=== PATIENT | male | born 1960 | race Caucasian/White ===

== ENCOUNTER 2016-06-30 11:49 | Inpatient (IN) | payer OTHER ==
[~2016-06-30] VITALS: Ht 175.3 cm; Wt 62.4 kg
[~2016-06-30 11:49] MED LIST: AMITRIPTYLINE H10 MG PO; AMLODIPINE BESYL5 MG PO; ATENOLOL100 MG PO; ATENOLOL50 MG PO; ATORVASTATIN CA10 MG PO; CARDIZEM C1 PO; COMBIVENT RESPIMAT IN; COMBIVENT RESPIMAT INH; CYCLOBENZAPRINE10 MG PO; LEVOFLOXACIN500 MG PO; LIPITOR20 MG PO; LOPRESSOR25 MG PO; MAG6464 MG PO; MAGNESIUM400 M1; MAGNESIUM400 M1 PO; MELOXICAM7.5 MG PO; NORCO1 TA1 PO; NORCO1 TA2 PO; NORVASC5 MG PO; OMEGA 31000 MG; OMEGA 31000 MG PO; OMEPRAZOLE20 M1 PO; ONDANSETRON ODT4 MG PO; POTASSIUM CHLO20 ME4 PO; PREDNISONE10 MG PO; PRENATABS RX PO; PRENATAL MULTI1 CAP PO; PRILOSEC OTC20 MG PO; TIZANIDINE HCL4 MG PO; ZOFRAN ODT4 MG PO; [UNRECOGNIZED DRUG - SUPPLY]; [UNRECOGNIZED DRUG - SUPPLY] TOP
--- NOTE | 2016-06-30 13:13 | DIAGNOSTIC IMAGING REPORT ---
PROCEDURE: XR CHEST 1 VIEW INDICATION: Atrial fibrillation. TECHNIQUE: Portable AP view (1235 hours). COMPARISON: Compared to chest x-ray on 02/05/2016. FINDINGS: Allowing for overlying wires and electrodes, lungs are clear. Heart and mediastinum are normal. Thorax is normal. IMPRESSION: 1. Negative chest.
--- NOTE | 2016-06-30 13:18 | DIAGNOSTIC IMAGING REPORT ---
PROCEDURE: CT HEAD WITHOUT CONTRAST INDICATION: SEIZURE TECHNIQUE: Noncontrast axial images with sagittal and coronal reformations. COMPARISON: Compared to a head CT studies on 02/04/2016 and 01/31/2016. FINDINGS: Brain and ventricles are within normal limits (mild atrophic changes). No evidence of an acute process or hemorrhage. Sinuses and mastoids are normal. IMPRESSION: 1. Negative head CT (mild atrophic changes). No evidence of acute process. 2. Findings discussed with Dr. Dioni Mayes at [address] scans at this facility use dose modulation, iterative reconstruction, and/or weight-based dosing when appropriate to reduce radiation dose to as low as reasonably achievable.
--- NOTE | 2016-06-30 13:40 | ED ORDER SUMMARY ---
..... Patient: DEWEY VELOZ OrderSheet [facility] VisitID: [id number] [place] [address] 55y, M Registration Date/Time: 06/30/2016 ORDER SHEET Weight: 68.0 kg (stated) Allergies: CONTRAST DYE GENERAL ORDERS: Chest 1V Urgent (12:06/30/2016 Salome MORA) (Ack 12:10 LMuller) (12:32 MWinterer R.N.) CT Head wo Cont Urgent (12:06/30/2016 Salome MORA) (Ack 12:10 LMuller) (12:32 MWinterer R.N.) Health Promotion Specialist (Continuous) (:06/30/2016 Salome MORA) (Ack 12:10 LMuller) (12:11 MWinterer R.N.) CBC w Diff Urgent (12:06/30/2016 Salome MORA) (Ack 12:10 LMuller) (12:13 MWinterer R.N.) CMP Urgent (12:06/30/2016 Salome MORA) (Ack 12:10 LMuller) (12:13 MWinterer R.N.) UA-Culture if indicated Urgent (12:06/30/2016 Salome MORA) (Ack 12:10 LMuller) (12:55 MWinterer R.N.) PT with INR Urgent (12:06/30/2016 Salome MORA) (Ack 12:10 LMuller) (12:13 MWinterer R.N.) PTT Urgent (12:06/30/2016 Salome MORA) (Ack 12:10 LMuller) (12:13 MWinterer R.N.) Amylase Urgent (12:06/30/2016 Salome MORA) (Ack 12:10 LMuller) (12:13 MWinterer R.N.) Lipase Urgent (12:06/30/2016 Salome MORA) (Ack 12:10 LMuller) (12:13 MWinterer R.N.) CPK Urgent (12:06/30/2016 Salome MORA) (Ack 12:10 LMuller) (12:13 MWinterer R.N.) Troponin-I Urgent (12:06/30/2016 Salome MORA) (Ack 12:10 LMuller) (12:13 MWinterer R.N.) Urine Drug Screen Urgent (12:06/30/2016 Salome MORA) (Ack 12:10 LMuller) (12:55 MWinterer R.N.) Ethyl Alcohol Urgent (12:06/30/2016 Salome MORA) (Ack 12:10 LMuller) (12:13 MWinterer R.N.) TSH Urgent (12:06/30/2016 Salome MORA) (Ack 12:10 LMuller) (12:13 MWinterer R.N.) BNP Urgent (12:06/30/2016 Salome MORA) (Ack 12:10 LMuller) (12:13 MWinterer R.N.) Oxygen (2 L/min) (NC) (12:06/30/2016 Salome MORA) (Ack 12:10 LMuller) (12:11 MWinterer R.N.) Pulse oximeter (12:06/30/2016 Salome MORA) (Ack 12:10 LMuller) (12:11 MWinterer R.N.) EKG - ER Stat (12:06/30/2016 Salome MORA) (Ack 12:10 LMuller) (12:10 LMuller) Seizure Precautions (12:25 06/30/2016 Salome MORA) (12:32 MWinterer R.N.) Hip 2V Right w AP Pelvis Urgent (12:32 06/30/2016 MWinterer R.N. verbal order read back to Salome MORA) (Ack 12:49 LMuller) (12:51 MWinterer R.N.) MEDICATION ORDERS: Diltiazem PO 30 mg (NOW) (13:15 06/30/2016 Salome MORA) (Ack 13:18 MWinterer R.N.) (13:22 MWinterer R.N.) DuoNeb Neb Tx 1 unit dose (NOW) (14:32 06/30/2016 MWinterer R.N. verbal order read back to Salome MORA) (14:33 MWinterer R.N.) IV FLUIDS: Diltiazem IV 20 mg (HIGH ALERT MEDICATION, NOW) (12:07 06/30/2016 Salome MORA) (12:12 MWinterer R.N.) IV Saline Lock (12:09 06/30/2016 Salome MORA) (12:12 MWinterer R.N.) Ativan IV 0.5 mg (HIGH ALERT MEDICATION, NOW) (12:24 06/30/2016 Salome MORA) (12:31 MWinterer R.N.) Zofran IV 4 mg (NOW) (12:32 06/30/2016 MWinterer R.N. verbal order read back to Salome MORA) (12:33 MWinterer R.N.) Diltiazem IV 25 mg (HIGH ALERT MEDICATION, NOW) (12:57 06/30/2016 Salome MORA) (13:02 MWinterer R.N.) IV NS : initial bolus none -, then 1000 mL/hr (NOW) (13:03 06/30/2016 MWinterer R.N. per protocol) (13:03 MWinterer R.N.) LORazepam IV 1 mg (NOW) (14:06 06/30/2016 MWinterer R.N. verbal order read back to Salome MORA) (14:07 MWinterer R.N.) ORDER SHEET NOTES: [Electronically signed by Verónica Olson R.N. (15:50 06/30/2016)] [Electronically signed by Dioni Mayes MD (18:04 06/30/2016)] [Electronically locked/signed by Verónica Olson R.N. (15:50 06/30/2016)]
--- NOTE | 2016-06-30 13:40 | ED NURSING NOTES ---
Clinical Report - Nurses [facility] [address] [place] [address] 06/30/2016 11:50 Patient: DEWEY VELOZ TRIAGE Acuity: LEVEL 2. Chief Complaint: SEIZURE (single episode). Alert. No acute distress. MADI COMA SCORE: [place] Coma Scale: 14- eyes open spontaneously (4); best verbal response- disoriented (4); best motor response- obeys commands (6). --12:06 Verónica Olson R.N. 11:51 06/30/16. BP: 80/61. HR: 145. RR: 16. O2 saturation: 95% on room air. Temp: 98.3 F (oral). Pain level now: 12/02. --12:06 Verónica Olson R.N. Weight: 68 kg stated. Height/Length: 69 inches Per Patient. BMI: 22.2. --11:57 Verónica Olson R.N. Medications Amitriptyline HCl Oral 10 mg, at bedtime. AmLODIPine Besylate Oral 5 mg, daily. Atenolol Oral 100 mg, daily. Atorvastatin Calcium Oral 10 mg, daily. Combivent Respimat Inhalation (Aerosol Solution 20-100 mcg/act). Magnesium Oxide Oral 200mg daily. [place] Oral (Tablet 7.5-325 mg) 1 tablet, tid as needed. [place] 3 fatty aacids daily . Omeprazole Oral 20 mg, daily. Ondansetron HCl Oral (Tablet 4 mg) 1 tablet, as needed. --11:52 Verónica Olson R.N. Ostomy Supplies. TiZANidine HCl Oral 4 mg, 2x a day. Vitamin c Oral (Tablet Chewable 500 mg) 1 tablet, daily. --11:52 Verónica Olson R.N. Medication/allergy information source: the patient. --12:06 Verónica Olson R.N. Allergies CONTRAST DYE. --11:51 Verónica Olson R.N. History Arrived by EMS. Historian: EMS and patient. Unaccompanied. Primary physician (Hola). This occurred just prior to arrival. SOCIAL HX: Former smoker, end date 2010. Alcohol use. Patient is a longstanding alcoholic. (PT REPORTS LAST DRINK 1 WEEK AGO). No drug use. LEARNING NEEDS ASSESSMENT: The learning needs assessment revealed no barriers. FALL RISK ASSESSMENT: Fall risk assessment completed. Risk factors identified include nausea, dizziness and patient impairment of mobility. Fall interventions initiated. Patient visible from nurses' station. Call light in reach of patient. FUNCTIONAL ASSESSMENT: Functional assessment performed: independent with the activities of daily living. SKIN INTEGRITY ASSESSMENT: Skin integrity risk assessment completed. No skin integrity risk identified. --12:06 Verónica Olson R.N. PROBLEMS: Laceration. Head Injury. Fall. Lifestyle / Substance Problems. Crohn's Disease. Bowel Obstruction. Kidney failure. Broken hip. Pancreatitis. Heartburn. Hypertension. Chronic Back Pain. Elevated Platelets from lab on the 14ths. --11:53 Verónica Olson R.N. Anxiety Reaction. --11:53 Verónica Olson R.N. Atrial Fibrillation. --13:39 Verónica Olson R.N. ADDITIONAL SURGERIES: Appendectomy. Back Surgery. Colostomy. Knee Surgery. Lump removal on back. Bassem in right femur. --11:53 Verónica Olson R.N. Assessment GENERAL / NEURO / PSYCH: Alert. Patient appears calm and cooperative. RESPIRATORY: Respirations not labored. CVS: Capillary refill less than 2 seconds. GI / : Abdomen soft and nontender. SKIN: Mucous membranes are pink. Skin is warm and dry. --12:06 Verónica Olson R.N. Interventions ID band on patient. To treatment room. --12:06 Verónica Olson R.N. PHYSICAL ASSESSMENT To room via stretcher. GENERAL / NEURO / PSYCH: Alert. Appears in no acute distress. The patient is disoriented to time. Speech within normal limits. HEENT: No facial asymmetry noted. Mucous membranes are pink. RESPIRATORY: Respirations not labored. CVS: Capillary refill less than 2 seconds. SKIN: Skin is warm and dry. --12:16 Verónica Olson R.N. late entry - 12:01. CVS: Cardiac rhythm: atrial fibrillation with rapid ventricular response. --12:38 Verónica Olson R.N. NURSING PROGRESS NOTES 11:57 06/30/2016 Site #1 started via IV in the right forearm with an 20g angiocath, with aseptic technique and good blood return; one attempt. Blood drawn: rainbow set. Labeled in the presence of the patient and sent to the lab. --12:12 Verónica Olson R.N. 12:07 06/30/2016 Site #2 started via IV in the left forearm with an 20g angiocath, with aseptic technique and good blood return. Saline lock flushed with 10 mL saline. --12:12 Verónica Olson R.N. 12:07 06/30/2016 Diltiazem IVP 20 mg given over 1 minute(s) via site #1. Allergies verified and confirmed 5 rights. IV patency established. IV site checked: no pain, redness, or swelling. IV flushed thoroughly pre- and post-medication administration. IVP given by RN. --12:13 Verónica Olson R.N. late entry - 12:06. Oxygen administered by nasal cannula at 2 liters. Patient gowned. Seizure precautions initiated. Two patient identifiers checked. Call light placed in reach. Side rails up x 2. Bed placed in lowest position. Brakes of bed on. Patient ready for evaluation- chart flagged and ED physician notified. --12:17 Verónica Olson R.N. EKG time: (12:01 PM). EKG was performed by a tech and shown to the ED physician. --[facility] 06/[facility]2016 Started bag #1 1000 mL IV Fluids IV NS (Saline); at 1000 mL/hr over 1 hour(s) via site #1. Allergies verified and confirmed 5 rights. IV patency established. IV site checked: no pain, redness, or swelling. IV flushed thoroughly pre- and post-medication administration. --13:03 Verónica Olson R.N. 12:28 06/30/2016 Zofran (Ondansetron HCl) IVP 4 mg given over 1 minute(s) via site #1. Allergies verified and confirmed 5 rights. IV patency established. IV site checked: no pain, redness, or swelling. IV flushed thoroughly pre- and post-medication administration. IVP given by RN. --12:33 Verónica Olson R.N. 12:31 06/30/2016 Ativan (LORazepam) IVP 0.5 mg given over 1 minute(s) via site #1. Allergies verified, confirmed 5 rights and sedative warning given to the patient. IV patency established. IV site checked: no pain, redness, or swelling. IV flushed thoroughly pre- and post-medication administration. IVP given by RN. --12:31 Verónica Olson R.N. 12:49 06/30/16. BP: 141/83. HR: 120. RR: 18. O2 saturation: 95% on nasal cannula at 2 liters/minute. --12:50 Verónica Olson R.N. 12:56 06/30/16. Checked patient name and birthdate: patient confirmed urine collected with return of yellow-colored clear urine; sample sent to lab for urinalysis and drug screen. Specimen labeled in the presence of the patient. --12:56 Verónica Olson R.N. 13:02 06/30/2016 Diltiazem IVP 25 mg given over 4 minute(s) via site #1. Allergies verified and confirmed 5 rights. IV patency established. IV site checked: no pain, redness, or swelling. IV flushed thoroughly pre- and post-medication administration. IVP given by RN. --13:02 Verónica Olson R.N. 13:04 06/30/2016 Started bag #2 1000 mL IV Fluids IV NS (Saline); at 999 mL/hr over 30 minute(s) via site #1 via IV pump. Allergies verified and confirmed 5 rights. IV patency established. IV site checked: no pain, redness, or swelling. IV flushed thoroughly pre- and post-medication administration. --13:05 Verónica Olson R.N. 13:04 06/30/2016 IV Fluids IV NS Discontinued: bag #1 infused. Total amount infused: 1000 mL. IV patency established. IV site checked: no pain, redness, or swelling. IV flushed thoroughly. --13:04 Verónica Olson R.N. 13:12 06/30/16. EKG time: (1313). EKG was performed by a nurse and shown to the ED physician. repeat EKG. --13:12 Verónica Olson R.N. 13:12 06/30/16. BP: 107/56. HR: 84. RR: 29. O2 saturation: 96% on nasal cannula at 2 liters/minute. --13:13 Verónica Olson R.N. 13:22 06/30/2016 Diltiazem PO 30 mg given. Allergies verified and confirmed 5 rights. --13:22 Verónica Olson R.N. 13:29 06/30/16. BP: 118/80. HR: 95. RR: 18. O2 saturation: 97% on nasal cannula at 2 liters/minute. --13:30 Verónica Olson R.N. 13:31 06/30/2016 IV Fluids IV NS via IV site #1 Rate Changed: bag #2 decreased to 125 mL/hr via IV pump. IV patency established. IV site checked: no pain, redness, or swelling. IV flushed thoroughly. Confirmed 5 Rights. --13:31 Verónica Olson R.N. 14:07 06/30/2016 Lorazepam (LORazepam) IVP 1 mg given over 1 minute(s) via site #1. Allergies verified, confirmed 5 rights and sedative warning given to the patient. IV patency established. IV site checked: no pain, redness, or swelling. IV flushed thoroughly pre- and post-medication administration. IVP given by RN. --14:07 Verónica Olson R.N. 14:23 06/30/2016 Duoneb (Ipratropium-Albuterol) Neb TX 1 unit dose given. Given by the respiratory therapist. Allergies verified and confirmed 5 rights. --14:33 Verónica Olson R.N. DISPOSITION / DISCHARGE Condition at departure: stable. Admitted to Acute Care. Transported via stretcher by [employer] with IV and O2. Report was given to a nurse via a phone call. Report included patient's care, treatment, medications, reviewed medication reconcilliation, and condition (including any recent changes or anticipated changes). All questions were answered. Report was acknowledged and care was transferred. (DANUTA Ledezma). Bed requested (306). Bed obtained (306). Patient's personal items include: shirt, pants and shoes; items were placed in belongings bag and transported with the patient. He did not have glasses, contacts or dentures. He did not have a hearing aid, wallet or cell phone. --14:26 Verónica Olson R.N. 14:26 06/30/16. BP: 136/63. HR: 106. RR: 18. O2 saturation: 96% on nasal cannula at 2 liters/minute. Temp: 98.2 F (oral). --14:27 Verónica Olson R.N. 15:00 06/30/2016 Site #[address] upon admission; patent, no pain and no signs of infection or infiltration. Converted to saline lock and flushed with 10 mL saline; flushes easily. --15:48 Verónica Olson R.N. 15:00 06/30/2016 Site #[address] upon admission; patent, no pain and no signs of infection or infiltration. Flushed with 10 mL saline; flushes easily. --15:49 Verónica Olson R.N. 15:00 06/30/2016 IV Fluids IV NS Discontinued: bag #2 discontinued upon admission. Total amount infused: 600 mL. IV patency established. IV site checked: no pain, redness, or swelling. IV flushed thoroughly. --15:47 Verónica Olson R.N. Locked/Released at 06/30/2016 15:50 by Verónica Olson R.N.
--- NOTE | 2016-06-30 13:40 | ED ORDER SUMMARY ---
..... Patient: DEWEY VELOZ OrderSheet [facility] VisitID: [id number] [place] [address] 55y, M Registration Date/Time: 06/30/2016 ORDER SHEET Weight: 68.0 kg (stated) Allergies: CONTRAST DYE GENERAL ORDERS: Chest 1V Urgent (12:06/30/2016 Salome MORA) (Ack 12:10 LMuller) (12:32 MWinterer R.N.) CT Head wo Cont Urgent (12:06/30/2016 Salome MORA) (Ack 12:10 LMuller) (12:32 MWinterer R.N.) Laser Cutter (Continuous) (:06/30/2016 Salome MORA) (Ack 12:10 LMuller) (12:11 MWinterer R.N.) CBC w Diff Urgent (12:06/30/2016 Salome MORA) (Ack 12:10 LMuller) (12:13 MWinterer R.N.) CMP Urgent (12:06/30/2016 Salome MORA) (Ack 12:10 LMuller) (12:13 MWinterer R.N.) UA-Culture if indicated Urgent (12:06/30/2016 Salome MORA) (Ack 12:10 LMuller) (12:55 MWinterer R.N.) PT with INR Urgent (12:06/30/2016 Salome MORA) (Ack 12:10 LMuller) (12:13 MWinterer R.N.) PTT Urgent (12:06/30/2016 Salome MORA) (Ack 12:10 LMuller) (12:13 MWinterer R.N.) Amylase Urgent (12:06/30/2016 Salome MORA) (Ack 12:10 LMuller) (12:13 MWinterer R.N.) Lipase Urgent (12:06/30/2016 Salome MORA) (Ack 12:10 LMuller) (12:13 MWinterer R.N.) CPK Urgent (12:06/30/2016 Salome MORA) (Ack 12:10 LMuller) (12:13 MWinterer R.N.) Troponin-I Urgent (12:06/30/2016 Salome MORA) (Ack 12:10 LMuller) (12:13 MWinterer R.N.) Urine Drug Screen Urgent (12:06/30/2016 Salome MORA) (Ack 12:10 LMuller) (12:55 MWinterer R.N.) Ethyl Alcohol Urgent (12:06/30/2016 Salome MORA) (Ack 12:10 LMuller) (12:13 MWinterer R.N.) TSH Urgent (12:06/30/2016 Salome MORA) (Ack 12:10 LMuller) (12:13 MWinterer R.N.) BNP Urgent (12:06/30/2016 Salome MORA) (Ack 12:10 LMuller) (12:13 MWinterer R.N.) Oxygen (2 L/min) (NC) (12:06/30/2016 Salome MORA) (Ack 12:10 LMuller) (12:11 MWinterer R.N.) Pulse oximeter (12:06/30/2016 Salome MORA) (Ack 12:10 LMuller) (12:11 MWinterer R.N.) EKG - ER Stat (12:06/30/2016 Salome MORA) (Ack 12:10 LMuller) (12:10 LMuller) Seizure Precautions (12:25 06/30/2016 Salome MORA) (12:32 MWinterer R.N.) Hip 2V Right w AP Pelvis Urgent (12:32 06/30/2016 MWinterer R.N. verbal order read back to Salome MORA) (Ack 12:49 LMuller) (12:51 MWinterer R.N.) MEDICATION ORDERS: Diltiazem PO 30 mg (NOW) (13:15 06/30/2016 Salome MORA) (Ack 13:18 MWinterer R.N.) (13:22 MWinterer R.N.) DuoNeb Neb Tx 1 unit dose (NOW) (14:32 06/30/2016 MWinterer R.N. verbal order read back to Salome MORA) (14:33 MWinterer R.N.) IV FLUIDS: Diltiazem IV 20 mg (HIGH ALERT MEDICATION, NOW) (12:07 06/30/2016 Salome MORA) (12:12 MWinterer R.N.) IV Saline Lock (12:09 06/30/2016 Salome MORA) (12:12 MWinterer R.N.) Ativan IV 0.5 mg (HIGH ALERT MEDICATION, NOW) (12:24 06/30/2016 Salome MORA) (12:31 MWinterer R.N.) Zofran IV 4 mg (NOW) (12:32 06/30/2016 MWinterer R.N. verbal order read back to Salome MORA) (12:33 MWinterer R.N.) Diltiazem IV 25 mg (HIGH ALERT MEDICATION, NOW) (12:57 06/30/2016 Salome MORA) (13:02 MWinterer R.N.) IV NS : initial bolus none -, then 1000 mL/hr (NOW) (13:03 06/30/2016 MWinterer R.N. per protocol) (13:03 MWinterer R.N.) LORazepam IV 1 mg (NOW) (14:06 06/30/2016 MWinterer R.N. verbal order read back to Salome MORA) (14:07 MWinterer R.N.) ORDER SHEET NOTES: [Electronically signed by Verónica Olson R.N. (15:50 06/30/2016)] [Electronically signed by Dioni Mayes MD (18:04 06/30/2016)] [Electronically locked/signed by Verónica Olson R.N. (15:50 06/30/2016)]
--- NOTE | 2016-06-30 13:40 | ED CLINICAL REPORT ---
Clinical Report - Physicians/Mid Levels Merged With [facility] [address] [place] [address] 06/30/2016 11:50 Patient: DEWEY VELOZ Time Seen: 12:06. Arrived- By ambulance. Historian- patient and EMS personnel. History limited by vague historian. HISTORY OF PRESENT ILLNESS Chief Complaint: SINGLE SEIZURE. This occurred just prior to arrival. The patient has recovered. Seizure was witnessed. The patient lost consciousness. No incontinence. No injuries noted. REVIEW OF SYSTEMS No chills, fever, sweats, calf pain or chest pain. No difficulty breathing, pedal edema, abdominal pain, black stools or bloody stools. No constipation or vomiting. He has had a moderate cough productive of scant amounts of green sputum. He has had moderate palpitations (chronically). He has had diarrhea (chronically from his ostomy). He has had nausea. All systems otherwise negative, except as recorded above. PAST HISTORY ( PCP Kevin Simental). Problems: Laceration. Head Injury. Fall. Lifestyle / Substance Problems. Crohn's Disease. Bowel Obstruction. Kidney failure. Broken hip. Pancreatitis. Anxiety Reaction. Heartburn. Hypertension. Chronic Back Pain. Additional Surgeries: Appendectomy. Back Surgery. Colostomy. Knee Surgery. Lump removal on back. Bassem in right femur. Medications: Ostomy Supplies. TiZANidine HCl Oral 4 mg, 2x a day. Vitamin c Oral (Tablet Chewable 500 mg) 1 tablet, daily. Amitriptyline HCl Oral 10 mg, at bedtime. AmLODIPine Besylate Oral 5 mg, daily. Atenolol Oral 100 mg, daily. Atorvastatin Calcium Oral 10 mg, daily. Combivent Respimat Inhalation (Aerosol Solution 20-100 mcg/act). Magnesium Oxide Oral 200mg daily. [place] Oral (Tablet 7.5-325 mg) 1 tablet, tid as needed. [place] 3 fatty aacids daily . Omeprazole Oral 20 mg, daily. Ondansetron HCl Oral (Tablet 4 mg) 1 tablet, as needed. Allergies: CONTRAST DYE. SOCIAL HISTORY Smoker- current status unknown. Alcohol use. Patient is a longstanding alcoholic. No drug use. Is a local resident. Resides in a house. He lives with a family member. FAMILY HISTORY Denies family medical history. ADDITIONAL NOTES The nursing notes have been reviewed. PHYSICAL EXAM Vital Signs: 06/30/2016 11:51 BP: 80/61. HR: 145. RR: 16. O2 saturation: 95%. Temp: 98.3 F. Pain level now: 12/02. Have been reviewed. Appearance: Alert. He appears unkempt and older than stated age. Eyes: Pupils equal, round and reactive to light. No nystagmus. ENT: Normal ENT inspection. Pharynx normal. Neck: Normal inspection. Neck supple. No meningeal signs or carotid bruit. CVS: Tachycardia. Abnormal rhythm, which is irregularly irregular. Respiratory: No respiratory distress. Decreased air movement. Abdomen: Soft and nontender. No organomegaly. Back: Normal inspection. Skin: Diaphoresis. Extremities: Extremities exhibit normal ROM. No calf tenderness. No lower extremity edema. Neuro: Alert. The patient is disoriented. Cranial nerves normal (as tested). No motor deficit. No sensory deficit. LABS, X-RAYS, AND EKG EKG: Rate: 149. Atrial fibrillation. EKG unchanged when compared with prior EKG. (07 Feb 2016). The study has been independently viewed by me. EKG #2: Rate: 89. Atrial fibrillation. Q waves in lead V1 and V2. this study was performed after the patient received 2 doses of IV diltiazem. The study has been independently viewed by me. Chest X-ray: Normal Chest X-Ray. CT Head: (IMPRESSION: 1. Negative head CT (mild atrophic changes). No evidence of acute process.). The study was interpreted contemporaneously by me and discussed with the radiologist. Laboratory Tests: UA-Culture if indicated: (FARZAD: 06/30/2016 12:54) ( MsgRcvd 06/30/2016 13:08) Final results Test Result Flag Units (Reference) URINE COLOR YELLOW URINE APPEARANCE CLEAR URINE GLUCOSE NEGATIVE (NEGATIVE) URINE BILIRUBIN NEGATIVE (NEGATIVE) URINE KETONE NEGATIVE (NEGATIVE) URINE SPECIFIC GRAVITY >= 1.030 (1.010-1.030) URINE PH 5.5 (5.0-8.0) URINE PROTEIN 3+ (NEGATIVE) URINE UROBILINOGEN 0.2 EU/dL (0.2-1.0) URINE NITRITE NEGATIVE (NEGATIVE) URINE BLOOD 3+ (NEGATIVE) URINE LEUK ESTERASE NEGATIVE (NEGATIVE) URINE RBC RARE rbc/hpf (0-1) URINE WBC RARE wbc/hpf (0-1) URINE EPITHELIAL CELLS NONE SEEN EPI/hpf (0-5) URINE BACTERIA TRACE (<1+) (NONE SEEN) URINE COMMENT CULT NOT INDICATED 1+ MUCOUS3-5 HYALINE CAST/LPFURINE CULTURES ARE SET-UP BASED ON THE FOLLOWING CRITERIA:POSITIVE NITRITEPOSITIVE LEUKOCYTE ESTERASEGREATER THAN 10 WHITE BLOOD CELLSMODERATE (2+) OR GREATER BACTERIA CBC w Diff: (FARZAD: 06/30/2016 12:07) ( MsgRcvd 06/30/2016 12:19) Final results Test Result Flag Units (Reference) WHITE BLOOD COUNT 10.0 K/uL (4.5-11.5) RED BLOOD COUNT 4.38 L M/uL (4.50-5.90) HEMOGLOBIN 14.5 gm/dL (13.5-17.5) HEMATOCRIT 42.4 % (41.0-53.0) MEAN CELL VOLUME 97 fL (80-100) MEAN CORPUSCULAR HGB 33 pg (26-34) MEAN CORPUSCULAR HGB CONC 34 g/dL (31-37) RED CELL DISTRIBUTION WIDTH 15.9 H % (11.6-14.8) PLATELET COUNT 154 K/uL (150-400) NEUTROPHIL % 84.5 H % (50-75) LYMPH % 8.2 L % (25-40) MONO % 6.5 % (3-14) EOSINOPHIL % 0.7 % (0-4) BASOPHIL % 0.1 % (0-2) PT with INR: (FARZAD: 06/30/2016 12:07) ( MsgRcvd 06/30/2016 12:26) Final results Test Result Flag Units (Reference) INR 0.9 (0.8-1.2) Low Intensity Therapy: INR 1.5-2.0 PT range 18.5-23.1Mod.Intensity Therapy: INR 2.0-3.0 PT range 23.1-31.5High Intensity Therapy: INR 2.5-3.5 PT range 27.4-35.5High Intensity Therapy 2: INR 3.0-4.0 PT range 31.5-39.3 APTT 24 SECONDS (24-34) Urine Drug Screen: (FARZAD: 06/30/2016 12:54) ( [facility] 06/30/2016 13:16) Final results Test Result Flag Units (Reference) AMPHETAMINE/METHAMPHETAMINE NEGATIVE (NEGATIVE) BARBITURATE NEGATIVE (NEGATIVE) BENZODIAZEPINE NEGATIVE (NEGATIVE) CANNABINOID NEGATIVE (NEGATIVE) COCAINE NEGATIVE (NEGATIVE) ECSTASY NEGATIVE (NEGATIVE) METHADONE NEGATIVE (NEGATIVE) OPIATE POSITIVE H (NEGATIVE) The urine drug screen is a qualitative screening test fordrug overdose and abuse. All screen results should beconsidered as presumptive.Drugs screened for are as follows:BenzodiazepinesCocaineAmphetamines/MetamphetaminesTHC (Tetrahydrocannabinol)OpiatesBarbituratesEcstasyMethadonePositive results are unconfirmed. For confirmation, notifythe lab for the specimen to be sent to the reference lab.All confirmations must be performed by a differentmethodology.The ingestion of natural herbal and plant productscontaining Ephedra/Ephedra metabolites can produce in urineone or more substances capable of cross reacting withamphetamine/methamphetamine immunoassays. These testsprovide a preliminary result only. A more specificalternative chemical method must be used to obtain aconfirmed analytical result. BNP: (FARZAD: 06/30/2016 12:07) ( [facility] 06/30/2016 12:41) Final results Test Result Flag Units (Reference) B-TYPE NATRIURETIC PEPTIDE 39.5 pg/ml (5-100) CMP: (FARZAD: 06/30/2016 12:07) ( [facility] 06/30/2016 13:03) Final results Test Result Flag Units (Reference) GLUCOSE 152 H mg/dL (70-110) BUN 14 mg/dL (7-18) CREATININE 1.0 mg/dL (0.6-1.3) Estimated GFR >60 mL/min Estimated GFR- >60 mL/min Note: Persistent reduction over 3 months in eGFR<60 mL/min/1.73 m2 defines CKD. Patients with eGFR values>=60 mL/min/1.73 m2 may also have CKD if evidence ofpersistent proteinuria. Additional information may be foundat www.kidney.org. SODIUM 139 mmol/L (136-145) POTASSIUM 4.5 mmol/L (3.5-5.1) CHLORIDE 98 mmol/L (98-107) CARBON DIOXIDE 18 L mmol/L (21-32) CALCIUM 9.3 mg/dL (8.5-10.1) TOTAL PROTEIN 8.5 H g/dL (6.4-8.2) ALBUMIN 4.0 g/dL (3.3-5.0) BILIRUBIN, TOTAL 0.6 mg/dL (0.0-1.0) ALKALINE PHOSPHATASE 146 H U/L (46-116) AST (SGOT) 75 H U/L (15-37) ALT (SGPT) 73 U/L (12-78) LIPASE 214 U/L (73-393) AMYLASE 98 U/L (25-115) CPK 269 H U/L (24-260) TROPONIN I 0.00 ng/mL (0.00-1.5) TROPONIN REFERENCE RANGE:<0.1 NEGATIVE0.1-1.5 INDETERMINANT>1.5 POSITIVE ETHYL ALCOHOL 7 mg/dL (3-10) THYROID STIMULATING HORMONE 1.469 uIU/mL (0.30-3.74) CK-MB 1.2 ng/mL (0.5-3.2) %CKMB 0.4 % (0.0-4.0) . PROGRESS AND PROCEDURES Course of Care: Patient is stable. Discussed case with hospitalist, (Gerald - She saw the patient in the ER). Reviewed test results and need for additional work-up. Agreed upon treatment plan, need for patient follow-up and decision to place in observation. Patient/family counseled. Old medical records ordered. Disposition: Admitted. Observation. CLINICAL IMPRESSION Seizure. Atrial fibrillation with uncontrolled rate. Alcohol withdrawal. (Electronically signed by Dioni Mayes MD 06/30/2016 18:04)
--- NOTE | 2016-06-30 14:06 | DIAGNOSTIC IMAGING REPORT ---
PROCEDURE: XR HIP 2VW W W/O AP PELVIS-RT INDICATION: TRAUMA/INJURY TECHNIQUE: AP view of the pelvis and hips with lateral view of the right hip. COMPARISON: Comparison is made to CT abdomen and pelvis on 03/11/2015. FINDINGS: RIGHT HIP: There is an old healed fracture of the right proximal femur which is transfixed with an long intramedullary deangelo (extends into the right femoral neck) and multiple screws. This is associated with marked varus angulation. No evidence of acute fracture. There is an 8 cm old calcified bone infarct in the distal of right femoral metaphysis. PELVIS: There is an old fracture of the right inferior pubic ramus. The rest of the osseous pelvis is normal. Right lower quadrant ostomy. IMPRESSION: 1. Status post open reduction internal fixation of old healed right femoral intertrochanteric fracture with chronic varus angulation. 2. Old healed fracture the right inferior pubic ramus. 3. 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 4. Right lower quadrant ostomy. 5. No evidence of acute process. 6. Findings discussed with Dr. Dioni Mayes.
--- NOTE | 2016-06-30 14:39 | History & Physical Report ---
Admission Admit Date 06/30/16 Information Source Information Source: Self, ED Record History Chief Complaint Possible seizure History of Present Illness 55yoM w/ hx of alcohol dependence, alcohol withdrawal seizures, COPD, afib, who presents after possible seizure at home. He remembers passing out, but does not recall many of the events surrounding what happened today. His daughter reportedly called EMS. He states that this has happened before, but does not know what triggers his seizures. He denies any alcohol use in the past week, and says that he had cut down drastically to only 2 cans of beer daily prior to that. He says he never drank more than 6 beers daily in the past. He currently feels pretty shaky, similar to previous withdrawal hospitalizations. He denies any recent fevers, respiratory symptoms, dysuria. He says he has been eating and drinking ok. Patient History 1. Alcohol withdrawal seizure 2. Alcohol dependence 3. COPD 4. Crohn disease 5. Pancreatitis 6. Anxiety 7. Hypertension Social History Quit smoking 6 years ago, last drink reportedly 1 week ago, denies any other drug use. Family History FATHER, , Age 76; Cause: Gastrointestinal complaints. Family hx-GI disorders MOTHER, Age 80 . Patient's mother is in good health siblings x2 First degree relatives alive and well sibling Family hx-eye disorder children x2 First degree relatives alive and well Medications and Allergies Medications Home medications: vitamin C, amitryptiline, amlodipine, atenolol (thinks he may have stopped this recently), combivent, magnesium, [place], omeprazole. Current Medications Sig/Hans Start time Last Medication Dose Route Stop Time Status Admin Amlodipine Besylate 5 MG DAILY 07/01 899 AC PO Enoxaparin Sodium 40 MG QAM 07/01 899 AC SC Multivit/ 1 TAB DAILY 07/01 899 AC Folic Acid/Iron PO Thiamine HCl 100 MG DAILY 07/01 899 AC PO Pantoprazole Sodium 40 MG DAILY@0600 07/01 599 AC Sesquihydrate PO Amitriptyline HCl 10 MG QHS 06/30 2100 AC PO Atenolol 50 MG BID 06/30 2100 AC PO Acetaminophen/ 1 TAB QID 06/30 1800 AC Hydrocodone Bitart PO Multivitamins 10 ML 1500 06/30 1500 AC Thiamine HCl 100 MG IV 06/30 2300 Folic Acid 1 MG Sodium Chloride 500 ML Morphine Sulfate 2 MG Q4H PRN 06/30 1430 AC IV Diazepam 5 MG PRN PRN 06/30 1415 AC IV Docusate Sodium 250 MG BID PRN 06/30 141 AC PO Morphine Sulfate 4 MG Q4H PRN 06/30 141 AC IV Naloxone HCl 0.4 MG PRN PRN 06/30 141 AC IV Ondansetron HCl 4 MG Q6H PRN 06/30 141 AC IV Sodium Chloride 1,000 ML ASDIRECTED 06/30 141 AC IV Sodium Chloride 1,000 ML ASDIRECTED 06/30 141 CAN IV Allergies Coded Allergies: Iodinated Contrast Media (Severe, "locks up my kidneys" 05/31/15) Iodinated Diagnostic Agents (Severe, 03/05/16) Review of Systems Other As per HPI, rest of 10-point ROS unremarkable. Physical Exam Vital Signs / I&Os Vital Signs Date Time Temp Pulse Resp B/P Pulse O2 O2 Flow FiO2 Ox Delivery Rate 06/30 1415 2.0 General Appearance Alert, Oriented X3, Full body tremors HEENT Atraumatic, PERRLA, EOMI, Moist mucous membranes Lungs Clear to auscultation Cardiovascular No murmurs, gallops, rubs, Irregular and borderline tachycardic Abdomen Normal bowel sounds, Soft, No tenderness Extremities No edema Skin No Rashes Neurological Normal speech, Sensation intact, Cranial nerves intact, Strength 5/ 5 x4 ext's Psych/Mental Status Slightly confused at times LAB Results Laboratory Tests 06/30 06/30 06/30 1254 1207 1207 Chemistry Plasma Sodium (136 - 145 mmol/L) 139 Plasma Potassium (3.5 - 5.1 mmol/L) 4.5 Plasma Chloride (98 - 107 mmol/L) 98 CO2 (Enzymatic) (21 - 32 mmol/L) 18 BUN (7 - 18 mg/dL) 14 Creatinine (0.6 - 1.3 mg/dL) 1.0 Est GFR ( Amer) (mL/min) >60 Est GFR (Non-Af Amer) (mL/min) >60 Glucose (70 - 110 mg/dL) 152 Plasma Calcium (8.5 - 10.1 mg/dL) 9.3 Total Bilirubin (0.0 - 1.0 mg/dL) 0.6 AST (15 - 37 U/L) 75 ALT (12 - 78 U/L) 73 Alkaline Phosphatase (46 - 116 U/L) 146 Creatine Kinase (24 - 260 U/L) 269 CK-MB (CK-2) (0.5 - 3.2 ng/mL) 1.2 CK/CKMB % Calc (0.0 - 4.0 %) 0.4 Troponin (0.00 - 1.5 ng/mL) 0.00 B-Natriuretic Peptide (5 - 100 pg/ml) 39.5 Total Protein (6.4 - 8.2 g/dL) 8.5 Albumin (3.3 - 5.0 g/dL) 4.0 Amylase (25 - 115 U/L) 98 Lipase (73 - 393 U/L) 214 TSH 3rd Generation (0.30 - 3.74 uIU/mL) 1.469 Coagulation INR (0.8 - 1.2) 0.9 APTT (24 - 34 SECONDS) 24 Hematology WBC (4.5 - 11.5 K/uL) 10.0 RBC (4.50 - 5.90 M/uL) 4.38 Hgb (13.5 - 17.5 gm/dL) 14.5 Hct (41.0 - 53.0 %) 42.4 MCV (80 - 100 fL) 97 MCH (26 - 34 pg) 33 RDW (11.6 - 14.8 %) 15.9 Neut % (Auto) (50 - 75 %) 84.5 Lymph % (Auto) (25 - 40 %) 8.2 [place] % (Auto) (3 - 14 %) 6.5 Eos % (Auto) (0 - 4 %) 0.7 Baso % (Auto) (0 - 2 %) 0.1 Plt Count, EDTA (150 - 400 K/uL) 154 PUBS MCHC (31 - 37 g/dL) 34 Toxicology Urine Opiates Screen (NEGATIVE) POSITIVE Urine Methadone Screen (NEGATIVE) NEGATIVE Ur Barbiturates Screen (NEGATIVE) NEGATIVE U Amphetamin/Meth Scrn (NEGATIVE) NEGATIVE MDMA (Ecstasy) Screen (NEGATIVE) NEGATIVE U Benzodiazepines Scrn (NEGATIVE) NEGATIVE Urine Cocaine Screen (NEGATIVE) NEGATIVE U Cannabinoids Screen (NEGATIVE) NEGATIVE Plasma/Serum Ethyl Alc (3 - 10 mg/dL) 7 Urines Urine Color YELLOW Urine Appearance CLEAR Urine pH (5.0 - 8.0) 5.5 Ur Specific [place] (1.010 - 1.030) >= 1.030 Urine Protein (NEGATIVE) 3+ Urine Ketones (NEGATIVE) NEGATIVE Urine Blood (NEGATIVE) 3+ Urine Nitrite (NEGATIVE) NEGATIVE Urine Bilirubin (NEGATIVE) NEGATIVE Urine Urobilinogen (0.2 - 1.0 EU/dL) 0.2 Ur Leukocyte Esterase (NEGATIVE) NEGATIVE Urine RBC (0 - 1 rbc/hpf) RARE Urine WBC (0 - 1 wbc/hpf) RARE Ur Epithelial Cells (0 - 5 EPI/hpf) NONE SEEN Urine Bacteria (NONE SEEN) TRACE (<1+) Urine Glucose (NEGATIVE) NEGATIVE Urine Comment CULT NOT INDICATED Assessment and Plan Problem List 1. Alcohol withdrawal seizure Plan Will place on seizure precautions. HCT unremarkable. Looks like he is actively withdrawing, despite his claim to his last drink being >[address] on withdrawal protocol, IVF hydration, MVI, thiamine, and folic. Monitor on telemetry. Patient with mild elevation in AST, which is likely alcohol-related. Will repeat LFTs in AM to monitor for resolution. CPK also mildly elevated, likely from the seizure. On IVF hydration, and will recheck in AM to make sure he is not developing rhabdo. 2. Alcohol dependence Status Chronic Onset Date Unknown Plan Treatment for withdrawal as above. 3. Metabolic acidosis Plan AG 23. Will check lactic, ketones, as these are the most likely causes. Will provide IVF hydration and monitor. 4. Atrial fibrillation with RVR Plan Improved in ED with diltiazem. Patient had been on atenolol previously. Will restart this. Monitor on tele. 5. Hypertension Plan Continue amlodipine. 6. COPD Plan Continue combivent. FEN: regular Ppx: lovenox Code: FULL, per discussion w/ patient in ED Dispo: Inpatient care for active alcohol withdrawal and risk of seizure, as will likely require >2MN hospital stay. E&M Codes Admission: Inpt-High/63484
[2016-06-30 15:16] VITALS: BP 147/81
[2016-06-30] MEDS ORDERED: VICODIN EQUIVAL1 TAB PO (16:26)
[2016-06-30] MEDS ORDERED: CYCLOBENZAPRINE10 MG PO (16:27)
--- NOTE | 2016-06-30 18:05 | ED MED RECONCILIATION SUMMARY ---
Patient: DEWEY VELOZ Medication Reconciliation Report [facility] VisitID: [id number] [address] [place] [address] 55y, M Registration Date/Time: 06/30/2016 Weight: 68.0 kg Height/Length: 69 in. BMI: 22.2 ALLERGIES: CONTRAST DYE The patient's Home Medications are listed below: THE FOLLOWING MEDICATIONS NEED TO BE RECONCILED: Amitriptyline HCl Oral 10 mg, at bedtime AmLODIPine Besylate Oral 5 mg, daily Atenolol Oral 100 mg, daily Atorvastatin Calcium Oral 10 mg, daily Combivent Respimat Inhalation (20-100 mcg/act) Magnesium Oxide Oral 200mg daily [place] Oral (7.5-325 mg) 1 tablet, tid [place] 3 fatty aacids daily Omeprazole Oral 20 mg, daily Ondansetron HCl Oral (4 mg) 1 tablet Ostomy Supplies TiZANidine HCl Oral 4 mg, 2x a day Vitamin c Oral (500 mg) 1 tablet, daily The source(s) of the original Home Medication information: patient The following Medications were given to the patient in the Emergency Department: Diltiazem [IVP] IVP 20 mg, administered: 06/30/2016 12:07:00 PM Ativan [IVP] IVP 0.5 mg, administered: 06/30/2016 12:31:00 PM Zofran [IVP] IVP 4 mg, administered: 06/30/2016 12:28:00 PM Diltiazem [IVP] IVP 25 mg, administered: 06/30/2016 1:02:00 PM IV NS IV Fluids bolus 0, then 1000 mL/hr, administered: 06/30/2016 12:03:00 PM IV NS IV Fluids bolus 0, then 999 mL/hr, administered: 06/30/2016 1:04:00 PM Diltiazem [PO] PO 30 mg, administered: 06/30/2016 1:22:00 PM Lorazepam [IVP] IVP 1 mg, administered: 06/30/2016 2:07:00 PM Duoneb [Neb Tx] Neb [place] 1 unit dose, administered: 06/30/2016 2:23:00 PM The following Medications were prescribed to the patient: None.
--- NOTE | 2016-06-30 18:05 | ED MAR SUMMARY ---
..... Medication Administration Record [facility] [address] [place] [address] Patient: DEWEY VELOZ Visit ID: [id number] 55y, M Weight: 68.0 kg Height/Length: 69 in BMI: 22.2 ALLERGIES: CONTRAST DYE Start 12:03 06/30/2016 Verónica Olson R.N., Stop 13:04 06/30/2016 Verónica Olson R.N. Medication Administered: IV NS (SALINE), Dose: IV Fluids over 1 hour(s), Rate: 1000 mL/hr, Dispensed: 1000 mL bag, Site: #1 right forearm. Medication Ordered: IV NS : initial bolus none -, then 1000 mL/hr (NOW). Given 12:07 06/30/2016 Verónica Olson R.N. Medication Administered: DILTIAZEM [IVP], Dose: 20 mg IVP over 1 minute(s), Site: #1 right forearm. Medication Ordered: Diltiazem IV 20 mg (HIGH ALERT MEDICATION, NOW). Given 12:28 06/30/2016 Verónica Olson R.N. Medication Administered: ZOFRAN [IVP] (ONDANSETRON HCL), Dose: 4 mg IVP over 1 minute(s), Site: #1 right forearm. Medication Ordered: Zofran IV 4 mg (NOW). Given 12:31 06/30/2016 Verónica Olson R.N. Medication Administered: ATIVAN [IVP] (LORAZEPAM), Dose: 0.5 mg IVP over 1 minute(s), Site: #1 right forearm. Medication Ordered: Ativan IV 0.5 mg (HIGH ALERT MEDICATION, NOW). Given 13:02 06/30/2016 Verónica Olson R.N. Medication Administered: DILTIAZEM [IVP], Dose: 25 mg IVP over 4 minute(s), Site: #1 right forearm. Medication Ordered: Diltiazem IV 25 mg (HIGH ALERT MEDICATION, NOW). Start 13:04 06/30/2016 Verónica Olson R.N., Stop 15:00 06/30/2016 Winterer, Verónica, R.N. Medication Administered: IV NS (SALINE), Dose: IV Fluids over 30 minute(s), Rate: 999 mL/hr, Dispensed: 1000 mL bag, Site: #1 right forearm. Medication Ordered: IV NS : initial bolus none -, then 1000 mL/hr (NOW). Given 13:22 06/30/2016 Verónica Olson R.N. Medication Administered: DILTIAZEM [PO], Dose: 30 mg PO. Medication Ordered: Diltiazem PO 30 mg (NOW). Given 14:07 06/30/2016 Verónica Olson R.N. Medication Administered: LORAZEPAM [IVP] (LORAZEPAM), Dose: 1 mg IVP over 1 minute(s), Site: #1 right forearm. Medication Ordered: LORazepam IV 1 mg (NOW). Given 14:23 06/30/2016 Verónica Olson R.N. Medication Administered: DUONEB [NEB TX] (IPRATROPIUM-ALBUTEROL), Dose: 1 unit dose Neb TX. Medication Ordered: DuoNeb Neb Tx 1 unit dose (NOW).
--- NOTE | 2016-06-30 18:05 | ED DISCHARGE INSTRUCTIONS ---
Patient: DEWEY VELOZ General Instructions [facility] VisitID: [id number] [address] [place] [address] 55y, M Registration Date/Time: 06/30/2016 Seizure. Atrial fibrillation with uncontrolled rate. Alcohol withdrawal. (Electronically signed by Dioni Mayes MD 06/30/2016 18:04)
--- NOTE | 2016-06-30 18:05 | ED DISCHARGE INSTRUCTIONS ---
Patient: DEWEY VELOZ General Instructions [facility] VisitID: [id number] [address] [place] [address] 55y, M Registration Date/Time: 06/30/2016 Seizure. Atrial fibrillation with uncontrolled rate. Alcohol withdrawal. (Electronically signed by Dioni Mayes MD 06/30/2016 18:04)
--- NOTE | 2016-06-30 18:05 | ED MAR SUMMARY ---
..... Medication Administration Record [facility] [address] [facility] [place] [address] Patient: DEWEY VELOZ Visit ID: [id number] 55y, M Weight: 68.0 kg Height/Length: 69 in BMI: 22.2 ALLERGIES: CONTRAST DYE Start 12:03 06/30/2016 Verónica Olson R.N., Stop 13:04 06/30/2016 Verónica Olson R.N. Medication Administered: IV NS (SALINE), Dose: IV Fluids over 1 hour(s), Rate: 1000 mL/hr, Dispensed: 1000 mL bag, Site: #1 right forearm. Medication Ordered: IV NS : initial bolus none -, then 1000 mL/hr (NOW). Given 12:07 06/30/2016 Verónica Olson R.N. Medication Administered: DILTIAZEM [IVP], Dose: 20 mg IVP over 1 minute(s), Site: #1 right forearm. Medication Ordered: Diltiazem IV 20 mg (HIGH ALERT MEDICATION, NOW). Given 12:28 06/30/2016 Verónica Olson R.N. Medication Administered: ZOFRAN [IVP] (ONDANSETRON HCL), Dose: 4 mg IVP over 1 minute(s), Site: #1 right forearm. Medication Ordered: Zofran IV 4 mg (NOW). Given 12:31 06/30/2016 Verónica Olson R.N. Medication Administered: ATIVAN [IVP] (LORAZEPAM), Dose: 0.5 mg IVP over 1 minute(s), Site: #1 right forearm. Medication Ordered: Ativan IV 0.5 mg (HIGH ALERT MEDICATION, NOW). Given 13:02 06/30/2016 Verónica Olson R.N. Medication Administered: DILTIAZEM [IVP], Dose: 25 mg IVP over 4 minute(s), Site: #1 right forearm. Medication Ordered: Diltiazem IV 25 mg (HIGH ALERT MEDICATION, NOW). Start 13:04 06/30/2016 Verónica Olson R.N., Stop 15:00 06/30/2016 Winterer, Verónica, R.N. Medication Administered: IV NS (SALINE), Dose: IV Fluids over 30 minute(s), Rate: 999 mL/hr, Dispensed: 1000 mL bag, Site: #1 right forearm. Medication Ordered: IV NS : initial bolus none -, then 1000 mL/hr (NOW). Given 13:22 06/30/2016 Verónica Olson R.N. Medication Administered: DILTIAZEM [PO], Dose: 30 mg PO. Medication Ordered: Diltiazem PO 30 mg (NOW). Given 14:07 06/30/2016 Verónica Olson R.N. Medication Administered: LORAZEPAM [IVP] (LORAZEPAM), Dose: 1 mg IVP over 1 minute(s), Site: #1 right forearm. Medication Ordered: LORazepam IV 1 mg (NOW). Given 14:23 06/30/2016 Verónica Olson R.N. Medication Administered: DUONEB [NEB TX] (IPRATROPIUM-ALBUTEROL), Dose: 1 unit dose Neb TX. Medication Ordered: DuoNeb Neb Tx 1 unit dose (NOW).
--- NOTE | 2016-06-30 18:05 | ED MED RECONCILIATION SUMMARY ---
Patient: DEWEY VELOZ Medication Reconciliation Report [facility] VisitID: [id number] [address] [place] [address] 55y, M Registration Date/Time: 06/30/2016 Weight: 68.0 kg Height/Length: 69 in. BMI: 22.2 ALLERGIES: CONTRAST DYE The patient's Home Medications are listed below: THE FOLLOWING MEDICATIONS NEED TO BE RECONCILED: Amitriptyline HCl Oral 10 mg, at bedtime AmLODIPine Besylate Oral 5 mg, daily Atenolol Oral 100 mg, daily Atorvastatin Calcium Oral 10 mg, daily Combivent Respimat Inhalation (20-100 mcg/act) Magnesium Oxide Oral 200mg daily [place] Oral (7.5-325 mg) 1 tablet, tid Pearson 3 fatty aacids daily Omeprazole Oral 20 mg, daily Ondansetron HCl Oral (4 mg) 1 tablet Ostomy Supplies TiZANidine HCl Oral 4 mg, 2x a day Vitamin c Oral (500 mg) 1 tablet, daily The source(s) of the original Home Medication information: patient The following Medications were given to the patient in the Emergency Department: Diltiazem [IVP] IVP 20 mg, administered: 06/30/2016 12:07:00 PM Ativan [IVP] IVP 0.5 mg, administered: 06/30/2016 12:31:00 PM Zofran [IVP] IVP 4 mg, administered: 06/30/2016 12:28:00 PM Diltiazem [IVP] IVP 25 mg, administered: 06/30/2016 1:02:00 PM IV NS IV Fluids bolus 0, then 1000 mL/hr, administered: 06/30/2016 12:03:00 PM IV NS IV Fluids bolus 0, then 999 mL/hr, administered: 06/30/2016 1:04:00 PM Diltiazem [PO] PO 30 mg, administered: 06/30/2016 1:22:00 PM Lorazepam [IVP] IVP 1 mg, administered: 06/30/2016 2:07:00 PM Duoneb [Neb Tx] Neb TX 1 unit dose, administered: 06/30/2016 2:23:00 PM The following Medications were prescribed to the patient: None.
[2016-06-30 18:12] VITALS: BP 128/74
[2016-06-30 23:01] VITALS: BP 137/96
[2016-07-01 03:42] VITALS: BP 124/80
[2016-07-01 06:56] VITALS: BP 131/88
[2016-07-01 10:44] VITALS: BP 127/86
[2016-07-01 14:21] VITALS: BP 140/88
--- NOTE | 2016-07-01 18:03 | Progress Note ---
Subjective General Pt doing well overnight, no complaints noted in the am. Patient still has persistent tremor and anxiety. Constitutional Denies: Fever, Chills, Sweats, Weakness, Malaise, Other. ENT Denies: Ear Pain, Ear Discharge, Nose Pain, Nasal Discharge, Nasal Congestion, Mouth Pain, Mouth Swelling, Throat Pain, Throat Swelling, Other. Respiratory Denies: Cough, Dry, SOB w/exertion, Wheezing, Hemoptysis, Pleuritic Pain, Sputum , Other. Cardiovascular Denies: Chest Pain, Palpitations, Orthopnea, PND, Edema, Light-headedness, Other. Gastrointestinal Denies: Nausea, Vomiting, Abdominal Pain, Diarrhea, Constipation, Melena, Hematochezia, Other. Genitourinary Denies: Dysuria, Frequency, Incontinence, Hematuria, Retention, Other. Musculoskeletal Denies: Neck Pain, Shoulder Pain, Arm Pain, Back Pain, Hand Pain, Leg Pain, Foot Pain, Other. Skin Denies: Rash, Lesions, Jaundice, Bruising, Other. Physical Exam Vital Signs / I&Os Vital Signs Date Time Temp Pulse Resp B/P Pulse O2 O2 Flow FiO2 Ox Delivery Rate 07/01 1421 97.9 90 18 140/88 96 Room Air 07/01 1137 Room Air 07/01 1044 98.8 94 18 127/86 94 Nasal 2.0 Cannula 07/01 0948 2.0 07/01 0852 100 07/01 0656 98.1 96 18 131/88 99 Nasal 2.0 Cannula 07/01 0342 98.8 88 16 124/80 98 Nasal 2.0 Cannula 06/30 2341 2.0 06/30 2301 98.4 119 19 137/96 98 Nasal 2.0 Cannula 06/30 2132 106 02/05 1954 2.0 / 1812 98.4 117 17 128/74 95 Nasal 2.0 Cannula I&O 06/30 0800 02/05 1600 02/06 0000 Intake Total 0 120 Output Total 200 1450 Balance -200 -1330 General Appearance Alert, Oriented X3, No acute distress HEENT Atraumatic, PERRLA, Moist mucous membranes Lungs Normal exam, Clear to auscultation Cardiovascular Regular rate and rhythm, No murmurs, gallops, rubs Abdomen Soft, No tenderness, No guarding Extremities No edema, Normal pulses Skin No Rashes, No Breakdown Neurological Normal speech, Normal tone Psych/Mental Status Mental status normal LAB Results Laboratory Tests 07/01 07/01 0350 0350 Chemistry Plasma Sodium (136 - 145 mmol/L) 140 Plasma Potassium (3.5 - 5.1 mmol/L) 3.2 Plasma Chloride (98 - 107 mmol/L) 102 CO2 (Enzymatic) (21 - 32 mmol/L) 26 BUN (7 - 18 mg/dL) 7 Creatinine (0.6 - 1.3 mg/dL) 0.7 Est GFR ( Amer) (mL/min) >60 Est GFR (Non-Af Amer) (mL/min) >60 Glucose (70 - 110 mg/dL) 93 Plasma Calcium (8.5 - 10.1 mg/dL) 7.7 Plasma Magnesium (1.8 - 2.4 mg/dL) 1.2 Total Bilirubin (0.0 - 1.0 mg/dL) 0.8 AST (15 - 37 U/L) 57 ALT (12 - 78 U/L) 49 Alkaline Phosphatase (46 - 116 U/L) 95 Creatine Kinase (24 - 260 U/L) 1264 CK-MB (CK-2) (0.5 - 3.2 ng/mL) 2.3 CK/CKMB % Calc (0.0 - 4.0 %) 0.2 Total Protein (6.4 - 8.2 g/dL) 7.1 Albumin (3.3 - 5.0 g/dL) 3.1 Hematology WBC (4.5 - 11.5 K/uL) 8.1 RBC (4.50 - 5.90 M/uL) 3.99 Hgb (13.5 - 17.5 gm/dL) 13.1 Hct (41.0 - 53.0 %) 39.1 MCV (80 - 100 fL) 98 MCH (26 - 34 pg) 33 RDW (11.6 - 14.8 %) 15.8 Neut % (Auto) (50 - 75 %) 80.5 Lymph % (Auto) (25 - 40 %) 10.6 [place] % (Auto) (3 - 14 %) 7.9 Eos % (Auto) (0 - 4 %) 0.4 Baso % (Auto) (0 - 2 %) 0.6 Plt Count, EDTA (150 - 400 K/uL) 130 PUBS MCHC (31 - 37 g/dL) 33 Microbiology Date/Time Procedure - Status Source Growth 06/30 1900 MRSA Screen - RECD NASAL Assessment and Plan Problem List 1. Alcohol withdrawal Plan - pts withdrawal symptoms have been decreasing steadily - will continue to monitor in the acute care setting - will c/w prn ativan and aggressive hydration 2. Hypomagnesemia Plan - seen in the am - corrected 3. Crohn disease Plan - chronic issue - currently stable 4. Anxiety Plan - established diagnosis - c/w home regimen 5. Atrial fibrillation Plan - pt seen to be afib on admission - rate controlled with diltaizem - currently pt well controlled on metoprolol - will continue to monitor on tele 6. Hypertension Plan - established - well controlled while in patient - will c/w home med regimen
[2016-07-01 18:07] VITALS: BP 131/82
[2016-07-01 21:38] VITALS: BP 148/88
[2016-07-02] VITALS (26 sets, daily range): BP systolic 90–152; BP diastolic 37–97
--- NOTE | 2016-07-02 19:50 | Progress Note ---
Subjective General Pt was seen and examined this morning. Before I arrived patient developed seizure activity, combativeness, and afib with RVR. Patient was started on diltiazem boluses and eventually a diltiazem drip. Patients heart rate is currently controlled. Patient additionally was placed on ativan drip for seizure activity and combativeness. Patient has not had a seizure since. Constitutional Other (unable to ascertain ). Physical Exam Vital Signs / I&Os Vital Signs Date Time Temp Pulse Resp B/P Pulse O2 O2 Flow FiO2 Ox Delivery Rate 07/02 1917 112 21 125/75 100 Nasal 3.0 Cannula 02/ 1807 98.2 114 22 91/64 99 Nasal 3.0 Cannula 02/ 1712 111 21 126/70 100 Nasal 3.0 Cannula 02/ 1609 110 24 117/74 98 Nasal 3.0 Cannula 02/ 1516 128 25 125/68 91 Mask 3.0 02/07 1400 98.4 99 18 144/68 98 OXYMASK 3.0 02/07 1300 104 18 124/79 98 OXYMASK 3.0 02/07 1200 112 18 116/73 98 OXYMASK 3.0 02/07 1100 98.4 130 28 100/37 99 OXYMASK 3.0 02/07 1000 114 28 113/71 98 OXYMASK 3.0 02/07 0900 159 28 118/68 98 OXYMASK 3.0 02/07 0838 118 116/67 02/07 0817 135 152/85 02/07 0808 120 117/67 94 OXYMASK 3.0 02/07 0725 108 103/81 93 OXYMASK 3.0 02/07 0723 112 02/07 0721 98.1 114 21 107/66 99 Nasal 3.0 Cannula 02/07 0720 86 90/53 02/07 0715 98.8 118 22 103/81 97 Nasal 2.0 Cannula 02/07 0713 168 22 90/53 97 Nasal 2.0 Cannula 02/07 0710 127 02/07 0705 137 02/07 0702 186 150/84 02/07 0700 98.8 172 22 133/80 97 Nasal 2.0 Cannula 02/ 0313 98.8 111 22 147/97 97 Room Air /8 98.8 102 18 148/88 97 Room Air 07/01 1955 Room Air I&O 02/ 0800 02/06 1600 07/02 0000 Intake Total 2118 1980 1747 Output Total 1035 1200 2250 Balance 1084 780 -503 General Appearance Mild distress HEENT Atraumatic, EOMI, Moist mucous membranes Lungs Clear to auscultation, Normal air movement Neck No masses Cardiovascular -tachycardic, irregularly irregular rhythm Abdomen Normal bowel sounds, Soft, No tenderness, ostomy producing stool Extremities No cyanosis, No edema Skin No Breakdown, No Significant Lesions Neurological Normal speech, Normal tone Psych/Mental Status Mood normal, Confused LAB Results Laboratory Tests 07/02 07/02 0405 1005 Chemistry Plasma Sodium (136 - 145 mmol/L) 140 Plasma Potassium (3.5 - 5.1 mmol/L) 4.3 Plasma Chloride (98 - 107 mmol/L) 102 CO2 (Enzymatic) (21 - 32 mmol/L) 26 BUN (7 - 18 mg/dL) 11 Creatinine (0.6 - 1.3 mg/dL) 0.8 Est GFR ( Amer) (mL/min) >60 Est GFR (Non-Af Amer) (mL/min) >60 Glucose (70 - 110 mg/dL) 85 Plasma Calcium (8.5 - 10.1 mg/dL) 8.7 Plasma Magnesium (1.8 - 2.4 mg/dL) 1.2 Total Bilirubin (0.0 - 1.0 mg/dL) 0.7 AST (15 - 37 U/L) 52 ALT (12 - 78 U/L) 47 Alkaline Phosphatase (46 - 116 U/L) 102 Creatine Kinase (24 - 260 U/L) 812 CK-MB (CK-2) (0.5 - 3.2 ng/mL) 2.8 CK/CKMB % Calc (0.0 - 4.0 %) 0.3 Troponin (0.00 - 1.5 ng/mL) <0.05 Total Protein (6.4 - 8.2 g/dL) 7.4 Albumin (3.3 - 5.0 g/dL) 3.4 Hematology WBC (4.5 - 11.5 K/uL) 7.3 RBC (4.50 - 5.90 M/uL) 3.90 Hgb (13.5 - 17.5 gm/dL) 12.6 Hct (41.0 - 53.0 %) 38.4 MCV (80 - 100 fL) 98 MCH (26 - 34 pg) 32 RDW (11.6 - 14.8 %) 15.6 Gran % 80.3 Lymph % (Auto) (25 - 40 %) 14.1 [place] % (Auto) (3 - 14 %) 5.6 Plt Count, EDTA (150 - 400 K/uL) 115 PUBS MCHC (31 - 37 g/dL) 33 Assessment and Plan Problem List 1. Alcohol withdrawal seizure Plan - will keep pt on ativan drip throughout the night - will keep the patient lightly sedated - c/w iv fluid aggressive - will titrate down the drip in the am - seizure precautions in place 2. Atrial fibrillation with RVR Plan - currently rate controlled - will keep on diltiazem drip for the time being - will wean down as much as rate allows
[2016-07-03] VITALS (23 sets, daily range): BP systolic 114–167; BP diastolic 42–111
--- NOTE | 2016-07-03 17:59 | Progress Note ---
Subjective General Pt doing well throughout the night. Patient is still actively in withdrawal. Patient has been minimally responsive and does not have any complaints. Constitutional Other (unable to assess ). Physical Exam Vital Signs / I&Os Vital Signs Date Time Temp Pulse Resp B/P Pulse O2 O2 Flow FiO2 Ox Delivery Rate 07/03 1718 120 25 116/86 95 Mask 2.0 02/ 1648 137 29 153/80 96 Mask 2.0 / 1400 118 35 148/68 98 OXYMASK 2.0 07/03 1300 99.1 02 1300 111 28 134/65 98 OXYMASK 2.0 07/03 1237 4.0 07/03 1200 128 34 161/63 98 OXYMASK 2.0 07/03 1100 117 29 147/86 98 OXYMASK 4.0 07/03 1032 120 32 143/76 98 OXYMASK 4.0 07/03 0957 117 40 140/79 98 OXYMASK 4.0 07/03 0843 OXYMASK 2.0 07/03 0742 120 33 143/93 99 OXYMASK 4.0 07/03 0730 98.8 118 32 125/111 99 OXYMASK 4.0 07/03 0600 110 28 114/81 99 OXYMASK 4.0 07/03 0523 100.9 106 20 166/74 99 OXYMASK 4.0 07/03 0415 OXYMASK 4.0 07/03 0410 OXYMASK 3.0 07/03 0400 93 18 141/80 97 oxy-mask 2.0 07/03 0300 108 23 150/65 93 oxy-mask 2.0 07/03 0228 116 20 136/85 97 Room Air 07/03 0126 108 23 126/42 97 Room Air 02/ 0017 96 16 167/77 97 Room Air 02/ 2316 123 19 146/83 97 Room Air 07/026 98.1 121 22 127/74 98 Room Air 07/026 116 21 111/66 96 Room Air 07/02 2020 116 23 108/88 98 Room Air 023 2.0 07/02 1950 Room Air 07/02 1917 112 21 125/75 100 Nasal 3.0 Cannula 07/02 1807 98.2 114 22 91/64 99 Nasal 3.0 Cannula I&O 07/02 0800 02 1600 07/03 0000 Intake Total 721 1223 Output Total 1525 659 814 Balance -804 564 -814 General Appearance Moderate distress, - pt not speaking clearly and is altered HEENT Atraumatic, EOMI, Moist mucous membranes Lungs - bilateral ronchi Cardiovascular Regular rate and rhythm, No murmurs, gallops, rubs Abdomen Soft, No tenderness Extremities No edema, Normal pulses Skin No Breakdown LAB Results Laboratory Tests 07/03 0405 Chemistry Plasma Sodium (136 - 145 mmol/L) 141 Plasma Potassium (3.5 - 5.1 mmol/L) 3.3 Plasma Chloride (98 - 107 mmol/L) 103 CO2 (Enzymatic) (21 - 32 mmol/L) 24 BUN (7 - 18 mg/dL) 3 Creatinine (0.6 - 1.3 mg/dL) 0.7 Est GFR ( Amer) (mL/min) >60 Est GFR (Non-Af Amer) (mL/min) >60 Glucose (70 - 110 mg/dL) 101 Plasma Calcium (8.5 - 10.1 mg/dL) 8.1 Plasma Magnesium (1.8 - 2.4 mg/dL) 1.5 Total Bilirubin (0.0 - 1.0 mg/dL) 0.7 AST (15 - 37 U/L) 52 ALT (12 - 78 U/L) 39 Alkaline Phosphatase (46 - 116 U/L) 81 Total Protein (6.4 - 8.2 g/dL) 6.9 Albumin (3.3 - 5.0 g/dL) 2.9 Hematology WBC (4.5 - 11.5 K/uL) 7.3 RBC (4.50 - 5.90 M/uL) 3.54 Hgb (13.5 - 17.5 gm/dL) 11.8 Hct (41.0 - 53.0 %) 34.9 MCV (80 - 100 fL) 99 MCH (26 - 34 pg) 33 RDW (11.6 - 14.8 %) 15.2 Neut % (Auto) (50 - 75 %) 78.6 Lymph % (Auto) (25 - 40 %) 9.0 [place] % (Auto) (3 - 14 %) 11.5 Eos % (Auto) (0 - 4 %) 0.9 Baso % (Auto) (0 - 2 %) 0 Plt Count, EDTA (150 - 400 K/uL) 148 PUBS MCHC (31 - 37 g/dL) 34 Microbiology Date/Time Procedure - Status Source Growth 07/03 UNK Blood Culture - ORD BLOOD 07/03 UNK Blood Culture - ORD BLOOD Assessment and Plan Problem List 1. Atrial fibrillation with RVR Plan - pt currently on cardizem drip with occasional pushes of metoprolol - pt has occasional runs of tachycardia vs rvr that brings up his heart rate to 140s - pt is rate controlled when he is not agitated however patient is continually going through withdrawal - am EKG revealed sinus tachycardia - will obtain repeat ekg in the am - will c/w cardizem drip overnight 2. Alcohol withdrawal Plan - Pt has been actively going through alcohol withdrawal - Pt is on ativan drip and currently restrained to avoid injury - aggressive iv hydration - will monitor for improvement 3. Fever Status Acute Onset Date Unknown Plan - Pt spiked a fever this afternoon - pt additionally has been having productive cough occasionally - will obtain chest xray, urine analysis and blood cultures
--- NOTE | 2016-07-03 18:36 | DIAGNOSTIC IMAGING REPORT ---
PROCEDURE: XR CHEST 1 VIEW INDICATION: Fever. TECHNIQUE: Portable AP view (1805 hours). COMPARISON: Compared to chest x-ray on 06/30/2016. FINDINGS: There has been development of mild increased parenchymal changes in the right perihilar region and right lung base. Left lung is clear Heart and mediastinum are normal. Thorax is normal. IMPRESSION: 1. Development of mild parenchymal changes right perihilar region and right lung base compatible with pneumonia (e.g., aspiration, bacterial).
[2016-07-04] VITALS (41 sets, daily range): BP systolic 67–186; BP diastolic 24–109
--- NOTE | 2016-07-04 06:59 | Progress Note ---
Late Entry Date/Time Late Entry Date and Time Patient started on Levaquin 759 mg IV for pneumonia He was started on Precedex drip at 10 pm and Lorazepam drip was gradually decreased Around 530 am , patient noted to be more somnolent and difficult to arouse depsite sternal rub. Precedex drip was at 0.3 mcg/kg. and decreased to 0.2 mcg/ kg.Lorazepam drip was discontinued and he becam more arousable with facial grimacing, movementof extremities with stimulation. Abg done showed a ph of 7.92 witrh Pco2 of 50 and po2 of 69. Around 630 am patient suddenly converted from sinus rythm to atrial fibrillation with heart rate in the 80-90s.BP dropped to the 50s. Diltiazem drip which was at 2.5 mg was d/c. precedex drip was d/c and patient was given a bolus of 1 liter of luids and started on dopamine drip Patient's hr now 113 with bp of 103/87 and patient responsive to minimal stimulation continue Iv fluids and dopamine drip. check troponin and lactic acid level
--- NOTE | 2016-07-04 08:58 | DIAGNOSTIC IMAGING REPORT ---
PROCEDURE: XR CHEST 1 VIEW INDICATION: aspiration pneumonia, follow-up TECHNIQUE: Portable AP view 08:33 a.m. COMPARISON: Chest x-ray 07/03/2016 FINDINGS: Mild progression of moderate right basilar infiltrate. Probable small right pleural effusion. Left lung is clear. Heart and mediastinum are normal. Thorax is normal. IMPRESSION: 1. Mild progression of moderate right basilar pneumonia with small right pleural effusion
--- NOTE | 2016-07-04 11:12 | DIAGNOSTIC IMAGING REPORT ---
PROCEDURE: XR CHEST 1 VIEW INDICATION: PICC PLACED TECHNIQUE: Portable AP view 10:52 a.m. COMPARISON: 08:30 a.m. chest dated 07/04/16 FINDINGS: PICC line in good position. Tip is in the SVC. Mild progression of moderate right basilar infiltrate. Probable small right pleural effusion. Left lung is clear. Heart and mediastinum are normal. Thorax is normal. IMPRESSION: 1. Mild progression of moderate right basilar pneumonia with small right pleural effusion 2. PICC line in good position. Results were called to the floor at [id number]
--- NOTE | 2016-07-04 18:58 | Progress Note ---
Subjective General Pt seen and examined. Patient last night had a bout of hypotension which was secondary to alpha blockade or sepsis. Patient was taken off the precedex and antibiotics were started. When i arrived, patient was very tachycardic, agitated and hypotensive. After an initial infusion of dopamine and dc of the precedex the patients blood pressure returned to baseline. However patient was still agitated and tachycardic. An ekg revealed that the patient reverted back into atrial fibrillation. Patient was restarted on diltiazem with prn metoprolol and prn ativan again. Patients blood pressure normalized and his heart rate improved. Constitutional Other (unable to assess ). Physical Exam Vital Signs / I&Os Vital Signs Date Time Temp Pulse Resp B/P Pulse O2 O2 Flow FiO2 Ox Delivery Rate 07/04 1844 38.1 102 26 140/52 100 Mask 4.0 07/04 1815 100.6 108 29 150/75 97 Mask 4.0 07/04 1745 100.6 99 31 143/70 100 Mask 4.0 07/04 1714 100.2 82 39 105/89 100 Mask 4.0 07/04 1645 100.0 86 24 134/64 98 Mask 4.0 02/ 1619 100.2 107 26 124/57 96 Mask 4.0 / 1600 Mask 4.0 07/04 1547 100.0 109 36 115/68 100 Mask 4.0 / 1517 100.4 102 38 104/62 97 Mask 4.0 / 1445 100.4 112 34 115/66 97 Mask 4.0 / 1400 37.8 130 32 166/54 98 Mask 4.0 / 1330 100.0 130 32 156/84 98 Mask 4.0 02/ 1230 100.4 121 34 186/77 98 Mask 4.0 02/ 1200 100.8 115 32 173/78 98 Mask 4.0 02/ 1158 100.9 02/ 1130 104 33 163/74 98 Mask 4.0 02/ 1116 137 34 156/73 100 Mask 4.0 02/ 1000 99.5 02/ 1000 137 26 123/58 98 Mask 4.0 02/ 0907 4.0 / 0900 100.0 02/ 0900 123 31 125/66 98 Mask 4.0 02/ 0800 98.6 02/ 0800 161 35 112/63 96 Mask 4.0 07/04 0747 4.0 07/04 0706 112/67 07/04 0652 77/47 07/04 0649 67/24 02 0648 99.7 121 33 145/93 100 Mask 15.0 02 0635 140/99 02 0630 145/109 07/04 0626 99/65 02 0619 85/40 07/04 0610 100.8 98 40 94 Mask 4.0 / 0558 6.0 02 0500 100.4 118 33 165/75 97 Mask 6.0 07/04 0411 99.5 108 35 152/75 96 Mask 6.0 07/04 0303 99.3 07/04 0300 99.3 94 30 111/82 95 Mask 6.0 07/04 0212 100.0 97 25 107/63 95 Mask 6.0 / 0108 100.4 110 33 141/71 93 Mask 6.0 07/04 0047 100.6 / 0009 100.9 111 32 131/74 96 Mask 6.0 07/03 2357 101.1 07/03 2303 101.7 02 2300 101.5 108 30 115/62 94 Mask 6.0 07/03 2200 101.8 110 27 116/74 95 Mask 6.0 07/03 2150 102.2 07/03 2140 27 07/03 2132 124 43 124/74 95 Mask 6.0 07/03 2010 130 24 142/70 99 Mask 6.0 07/03 2004 6.0 07/03 1930 Mask 6.0 I&O 07/03 0800 02 1600 07/04 0000 Intake Total 1813 0 2578 Output Total 881 1087 535 Balance 932 -1087 2043 General Appearance Mild distress, - sedated HEENT Atraumatic, Moist mucous membranes Lungs - bilateral ronchi, with occasional productive cough - poor cough reflex Cardiovascular Normal S1 and S2, - tachycardic, sinus rhythm Abdomen Soft, No tenderness Extremities Normal pulses, No tenderness Skin No Rashes, No Breakdown Neurological Normal speech, Sensation intact, Cranial nerves intact Psych/Mental Status Confused LAB Results Laboratory Tests 07/05 409 Chemistry Plasma Sodium (136 - 145 mmol/L) 143 Plasma Potassium (3.5 - 5.1 mmol/L) 3.5 Plasma Chloride (98 - 107 mmol/L) 108 CO2 (Enzymatic) (21 - 32 mmol/L) 22 BUN (7 - 18 mg/dL) 8 Creatinine (0.6 - 1.3 mg/dL) 0.9 Est GFR ( Amer) (mL/min) >60 Est GFR (Non-Af Amer) (mL/min) >60 Glucose (70 - 110 mg/dL) 83 Plasma Calcium (8.5 - 10.1 mg/dL) 8.3 Total Bilirubin (0.0 - 1.0 mg/dL) 0.5 AST (15 - 37 U/L) 25 ALT (12 - 78 U/L) 28 Alkaline Phosphatase (46 - 116 U/L) 70 Total Protein (6.4 - 8.2 g/dL) 6.4 Albumin (3.3 - 5.0 g/dL) 2.2 Hematology WBC (4.5 - 11.5 K/uL) 7.8 RBC (4.50 - 5.90 M/uL) 3.16 Hgb (13.5 - 17.5 gm/dL) 10.5 Hct (41.0 - 53.0 %) 31.6 MCV (80 - 100 fL) 100 MCH (26 - 34 pg) 33 RDW (11.6 - 14.8 %) 15.0 Neut % (Auto) (50 - 75 %) 77.6 Lymph % (Auto) (25 - 40 %) 6.8 [place] % (Auto) (3 - 14 %) 14.8 Eos % (Auto) (0 - 4 %) 0.7 Baso % (Auto) (0 - 2 %) 0.1 Plt Count, EDTA (150 - 400 K/uL) 196 PUBS MCHC (31 - 37 g/dL) 33 Assessment and Plan Problem List 1. Atrial fibrillation Plan - pt continued to be atrial fibrillation - pt was taken off of precedex and placed back on diltiazem drip - Pts heart rate went down appropriately - will continue with diltiazem for the time being with prn metoprolol 2. Hypotension Plan - resolved after precedex was stopped - will cotinue to monitor bp 3. Alcohol withdrawal seizure Plan - pt still requiring ativan prn pushes - will continue to monitor airway for further worsening withdrawals
[2016-07-05] VITALS (25 sets, daily range): BP systolic 107–167; BP diastolic 54–105
--- NOTE | 2016-07-05 18:56 | Progress Note ---
Subjective General Pt seen and examined this morning. Patient overnight had no hypotensive episodes however he has been having withdrawal symptoms. Patient had no other events overnight Constitutional Other (too altered to speak ). Physical Exam Vital Signs / I&Os Vital Signs Date Time Temp Pulse Resp B/P Pulse O2 O2 Flow FiO2 Ox Delivery Rate 07/08 1433 98.2 105 21 137/83 98 Nasal 2.0 Cannula 07/08 1058 98.4 101 18 153/84 97 Nasal 2.0 Cannula 07/08 0830 Nasal 2.0 Cannula 07/08 0732 2.0 07/08 0659 98.8 103 24 165/71 96 Nasal 2.0 Cannula 07/08 0212 95 17 158/84 98 Nasal 2.0 Cannula 07/08 0027 2.0 07/07 2227 97.5 100 18 159/86 100 Nasal 2.0 Cannula 07/07 2006 Nasal 2.0 Cannula 07/07 1845 97.5 95 21 162/87 100 Nasal 2.0 Cannula I&O 07/07 0800 07/07 1600 07/08 0000 Intake Total 1780 1946 500 Output Total 1625 2024 2074 Balance General Appearance Mild distress, - altered, diaphoretic HEENT Normal exam, EOMI, Moist mucous membranes Lungs Clear to auscultation, Normal air movement Cardiovascular tachycardic, in atrial fibrillation Abdomen Normal bowel sounds, Soft Extremities No edema, Normal pulses Neurological - altered unable to communicate appropriate - no noted neurological deficits Psych/Mental Status Confused LAB Results Laboratory Tests 07/08 0408 Chemistry Plasma Sodium (136 - 145 mmol/L) 143 Plasma Potassium (3.5 - 5.1 mmol/L) 3.4 Plasma Chloride (98 - 107 mmol/L) 102 CO2 (Enzymatic) (21 - 32 mmol/L) 31 BUN (7 - 18 mg/dL) 9 Creatinine (0.6 - 1.3 mg/dL) 1.0 Est GFR ( Amer) (mL/min) >60 Est GFR (Non-Af Amer) (mL/min) >60 Glucose (70 - 110 mg/dL) 87 Plasma Calcium (8.5 - 10.1 mg/dL) 8.4 Total Bilirubin (0.0 - 1.0 mg/dL) 0.3 AST (15 - 37 U/L) 33 ALT (12 - 78 U/L) 35 Alkaline Phosphatase (46 - 116 U/L) 114 Total Protein (6.4 - 8.2 g/dL) 6.4 Albumin (3.3 - 5.0 g/dL) 2.4 Assessment and Plan Problem List 1. Atrial fibrillation with RVR Plan - pt is rate controlled with cardizem, will continue - pt will require occasional lopressor pushes to control heart rate - pt has been normotensive - will continue to monitor overnight 2. Alcohol withdrawal Plan - currently patient is off of ativan drip however pt is still getting prn ativan pushes - will continue with ativan - will keep seizure precautions for the time being
[2016-07-06] VITALS (23 sets, daily range): BP systolic 126–171; BP diastolic 60–74
--- NOTE | 2016-07-06 17:56 | Progress Note ---
Subjective General Pt seen and examined, patient is more lucid than the day prior however patient still has lapses of confusion. Patient is otherwise stable. Constitutional Denies: Fever, Chills, Sweats, Weakness, Malaise, Other. Respiratory Denies: Cough, Dry, SOB w/exertion, Wheezing, Hemoptysis, Pleuritic Pain, Sputum , Other. Cardiovascular Other (tachycardic ). Denies: Chest Pain, Palpitations, Orthopnea, PND, Edema, Light-headedness. Gastrointestinal Denies: Nausea, Vomiting, Abdominal Pain, Diarrhea, Constipation, Melena, Hematochezia, Other. Genitourinary Denies: Dysuria, Frequency, Incontinence, Hematuria, Retention, Other. Musculoskeletal Denies: Neck Pain, Shoulder Pain, Arm Pain, Back Pain, Hand Pain, Leg Pain, Foot Pain, Other. Neurological Confusion. Denies: Weakness, Numbness, Incoordination, Change in speech, Seizures, Other. Physical Exam Vital Signs / I&Os Vital Signs Date Time Temp Pulse Resp B/P Pulse O2 O2 Flow FiO2 Ox Delivery Rate 07/08 1433 98.2 105 21 137/83 98 Nasal 2.0 Cannula 07/08 1058 98.4 101 18 153/84 97 Nasal 2.0 Cannula 07/08 0830 Nasal 2.0 Cannula 07/08 0732 2.0 07/08 0659 98.8 103 24 165/71 96 Nasal 2.0 Cannula 07/08 0212 95 17 158/84 98 Nasal 2.0 Cannula 07/08 0027 2.0 07/07 2227 97.5 100 18 159/86 100 Nasal 2.0 Cannula 07/07 2006 Nasal 2.0 Cannula 07/07 1845 97.5 95 21 162/87 100 Nasal 2.0 Cannula I&O 07/07 0800 07/07 1600 07/08 0000 Intake Total 1780 1946 500 Output Total 1625 2024 2074 Balance General Appearance Alert, No acute distress HEENT Atraumatic, Moist mucous membranes Lungs Clear to auscultation, Normal air movement Cardiovascular - tachycardic, out of atrial fibrillation Abdomen Soft, No tenderness, No guarding Extremities Normal exam Skin No Rashes LAB Results Laboratory Tests 07/08 0408 Chemistry Plasma Sodium (136 - 145 mmol/L) 143 Plasma Potassium (3.5 - 5.1 mmol/L) 3.4 Plasma Chloride (98 - 107 mmol/L) 102 CO2 (Enzymatic) (21 - 32 mmol/L) 31 BUN (7 - 18 mg/dL) 9 Creatinine (0.6 - 1.3 mg/dL) 1.0 Est GFR ( Amer) (mL/min) >60 Est GFR (Non-Af Amer) (mL/min) >60 Glucose (70 - 110 mg/dL) 87 Plasma Calcium (8.5 - 10.1 mg/dL) 8.4 Total Bilirubin (0.0 - 1.0 mg/dL) 0.3 AST (15 - 37 U/L) 33 ALT (12 - 78 U/L) 35 Alkaline Phosphatase (46 - 116 U/L) 114 Total Protein (6.4 - 8.2 g/dL) 6.4 Albumin (3.3 - 5.0 g/dL) 2.4 Assessment and Plan Problem List 1. Alcohol withdrawal Plan - pt requiring less frequent ativan pushes - pt is conversing normally - will continue to monitor - will maintain seizure precautions 2. Seizure disorder Plan - stable - no noted seizures 3. Atrial fibrillation Plan - currently better rate control - will continue to monitor on telemetry and continue with diltiazem drip -
[2016-07-07] VITALS (12 sets, daily range): BP systolic 105–174; BP diastolic 65–97
--- NOTE | 2016-07-07 19:27 | Progress Note ---
Subjective General Pt seen and examined. Patient started on all his home medications with improvement in patients heart rate. Patient is otherwise mentating normally. Constitutional Denies: Fever, Chills, Sweats, Weakness, Malaise, Other. Eyes Denies: Pain, Vision Change, Conjunctival Inflammation, Eyelid Inflammation, Redness, Other. ENT Denies: Ear Pain, Ear Discharge, Nose Pain, Nasal Discharge, Nasal Congestion, Mouth Pain, Mouth Swelling, Throat Pain, Throat Swelling, Other. Respiratory Cough. Denies: Dry, SOB w/exertion, Wheezing, Hemoptysis, Pleuritic Pain, Sputum, Other. Cardiovascular Denies: Chest Pain, Palpitations, Orthopnea, PND, Edema, Light-headedness, Other. Gastrointestinal Denies: Nausea, Vomiting, Abdominal Pain, Diarrhea, Constipation, Melena, Hematochezia, Other. Genitourinary Denies: Dysuria, Frequency, Incontinence, Hematuria, Retention, Other. Musculoskeletal Denies: Neck Pain, Shoulder Pain, Arm Pain, Back Pain, Hand Pain, Leg Pain, Foot Pain, Other. Skin Denies: Rash, Lesions, Jaundice, Bruising, Other. Neurological Denies: Weakness, Numbness, Incoordination, Change in speech, Confusion, Seizures, Other. Physical Exam Vital Signs / I&Os Vital Signs Date Time Temp Pulse Resp B/P Pulse O2 O2 Flow FiO2 Ox Delivery Rate 07/08 1433 98.2 105 21 137/83 98 Nasal 2.0 Cannula 07/08 1058 98.4 101 18 153/84 97 Nasal 2.0 Cannula 07/08 0830 Nasal 2.0 Cannula 07/08 0732 2.0 07/08 0659 98.8 103 24 165/71 96 Nasal 2.0 Cannula 07/08 0212 95 17 158/84 98 Nasal 2.0 Cannula 07/08 0027 2.0 07/07 2227 97.5 100 18 159/86 100 Nasal 2.0 Cannula 07/07 2007 Nasal 2.0 Cannula 07/07 1845 97.5 95 21 162/87 100 Nasal 2.0 Cannula I&O 07/07 0800 07/07 1600 07/08 0000 Intake Total 1780 1946 500 Output Total 1625 5 2075 Balance General Appearance Alert, Oriented X3, No acute distress HEENT Normal exam, EOMI, Moist mucous membranes Lungs Clear to auscultation, Normal air movement Cardiovascular tachycardic into the 120s Abdomen Soft, No tenderness Extremities No edema, Normal pulses, No tenderness Skin No Rashes Neurological Normal speech, Normal tone, Sensation intact, Reflexes 2+ and equal LAB Results Laboratory Tests 07/08 0408 Chemistry Plasma Sodium (136 - 145 mmol/L) 143 Plasma Potassium (3.5 - 5.1 mmol/L) 3.4 Plasma Chloride (98 - 107 mmol/L) 102 CO2 (Enzymatic) (21 - 32 mmol/L) 31 BUN (7 - 18 mg/dL) 9 Creatinine (0.6 - 1.3 mg/dL) 1.0 Est GFR ( Amer) (mL/min) >60 Est GFR (Non-Af Amer) (mL/min) >60 Glucose (70 - 110 mg/dL) 87 Plasma Calcium (8.5 - 10.1 mg/dL) 8.4 Total Bilirubin (0.0 - 1.0 mg/dL) 0.3 AST (15 - 37 U/L) 33 ALT (12 - 78 U/L) 35 Alkaline Phosphatase (46 - 116 U/L) 114 Total Protein (6.4 - 8.2 g/dL) 6.4 Albumin (3.3 - 5.0 g/dL) 2.4 Assessment and Plan Problem List 1. Atrial fibrillation Plan - switched to po cardizem with good results - will add metoprolol if pressure is stable - will maintain on telemetry - pt has a history of tachycardia and poor heart rate control 2. Alcohol withdrawal Plan - pt is out of alcohol withdrawal - will continue to monitor 3. Seizure disorder Plan - seizure precautions - no seizure activity noted
[2016-07-08 02:12] VITALS: BP 158/84
[2016-07-08 06:59] VITALS: BP 165/71
[2016-07-08 10:58] VITALS: BP 153/84
[2016-07-08 14:33] VITALS: BP 137/83
[2016-07-08] MEDS ORDERED: AZITHROMYCIN500 MG PO (16:03)
--- NOTE | 2016-07-08 16:04 | Discharge Summary ---
Discharge Summary Report Admit Date 06/30/16 Discharge Date 07/08/16 Admission Diagnosis alcohol withdrawal and seizure activity Discharge Diagnosis alcohol withdrawal and atrial fibrillation Brief History 55yoM w/ hx of alcohol dependence, alcohol withdrawal seizures, COPD, afib, who presents after possible seizure at home. He remembers passing out, but does not recall many of the events surrounding what happened today. His daughter reportedly called EMS. He states that this has happened before, but does not know what triggers his seizures. He denies any alcohol use in the past week, and says that he had cut down drastically to only 2 cans of beer daily prior to that. He says he never drank more than 6 beers daily in the past. He currently feels pretty shaky, similar to previous withdrawal hospitalizations. He denies any recent fevers, respiratory symptoms, dysuria. He says he has been eating and drinking ok. Hospital Course Pt was admitted for possible alcohol withdrawal. Patient was seen to be altered requiring frequent ativan doses to keep from becoming agitated. Patient was additionally seen to be in rapid atrial fibrillation which required the patient to have a cardizem drip started. Patient became relatively rate controlled on the cardizem drip. Patient then was placed on ativan drip due to the continuing agitation. Patient during the night time was switched to precedex which caused the patient to become too hypotensive. Patient was stopped on the precedex and restarted on cardizem with occasional ativan pushes. After three days of going through acute withdrawals patient was seen to regain his normal mentation. Patients heart rate reverted back to sinus and he was mentating normally. Patient was started on all his home medication and he continued to do well. Patient lastly was seen to have a gout attack on the last day of admission. Patient does not want to stay in the hospital for treatment and would rather go home for the rest of his treatment, and resume his gout medication at home. General Appearance Alert, Oriented X3, No acute distress HEENT PERRLA, Mucous membran moist/pink Lungs Clear to auscultation, Normal air movement Cardiovascular Normal S1, Normal S2, - tachycardia Abdomen Soft, No tenderness, No hepatospenomegaly Skin No Breakdown, No Significant Lesions Lab/Imaging Laboratory Tests 07/08 407 Chemistry Plasma Sodium (136 - 145 mmol/L) 143 Plasma Potassium (3.5 - 5.1 mmol/L) 3.4 Plasma Chloride (98 - 107 mmol/L) 102 CO2 (Enzymatic) (21 - 32 mmol/L) 31 BUN (7 - 18 mg/dL) 9 Creatinine (0.6 - 1.3 mg/dL) 1.0 Est GFR ( Amer) (mL/min) >60 Est GFR (Non-Af Amer) (mL/min) >60 Glucose (70 - 110 mg/dL) 87 Plasma Calcium (8.5 - 10.1 mg/dL) 8.4 Total Bilirubin (0.0 - 1.0 mg/dL) 0.3 AST (15 - 37 U/L) 33 ALT (12 - 78 U/L) 35 Alkaline Phosphatase (46 - 116 U/L) 114 Total Protein (6.4 - 8.2 g/dL) 6.4 Albumin (3.3 - 5.0 g/dL) 2.4 Discharge Instructions/Meds - take medications as prescribed - please see Dr Bhatia at your earliest convienience - avoid alcohol
--- NOTE | 2016-07-08 16:04 | Provider's Discharge Care Plan ---
Problem, Goal, Plan Problem List 1. Atrial fibrillation Instructions: Take meds as directed 2. Pneumonia Instructions: - take antibiotics as prescribed 3. Alcohol withdrawal seizure Instructions: - stop consuming alcohol
== END 2016-07-08 17:30 | disposition home or self-care (01) | DRG 896 ==
LOC: ED SRH 11:49 → TRANS SRH 13:54 → CC SRH 15:15
PROVIDERS: ADMIT Emergency Medicine
PROC: 02HV33Z Insertion of Infusion Device into Superior Vena Cava, Percutaneous Approach (ICD-10-PCS; principal; 2016-07-04)
DX: F10.239 Alcohol dependence with withdrawal, unspecified (principal); R56.9 Unspecified convulsions; J44.0 Chronic obstructive pulmonary disease with (acute) lower respiratory infection; J18.9 Pneumonia, unspecified organism; R40.0 Somnolence; E87.2 Acidosis; I48.91 Unspecified atrial fibrillation; Y90.0 Blood alcohol level of less than 20 mg/100 ml; M10.9 Gout, unspecified; Z78.1 Physical restraint status

== ENCOUNTER 2016-11-27 20:21 | Emergency (ER) | payer OTHER ==
[~2016-11-27 20:21] MED LIST changes: +AZITHROMYCIN500 MG PO; +VICODIN EQUIVAL1 TAB PO
--- NOTE | 2016-11-27 22:23 | ED NURSING NOTES ---
Clinical Report - Nurses [facility] [address] [place] [address] 11/27/2016 20:21 Patient: DEWEY VELOZ TRIAGE 20:35 11/27/16. BP: 162/103 (regular adult cuff) taken on the left arm, while sitting. HR: 96. RR: 20. O2 saturation: 97% on room air. Temp: 98.4 F (oral). Pain level now: 03/04. --20:38 Emma Slater R.N. late entry - 20:35 11/27/16. --21:26 Emma Slater R.N. Triage time 20:35 Nov 27 2016. Acuity: LEVEL 3. Chief Complaint: BACK PAIN. 20:38 11/27/16. SEPSIS SCREEN: Sepsis Screen. Negative (no infection suspected/documented). MADI COMA SCORE: [place] Coma Scale: 15- eyes open spontaneously (4); best verbal response- oriented x 4 (5); best motor response- obeys commands (6). --20:38 Emma Slater R.N. Weight: 70.3 kg stated. Height/Length: 69 inches Per Patient. BMI: 22.9. --20:37 Emma Slater R.N. Medications Amitriptyline HCl Oral 10 mg, at bedtime. AmLODIPine Besylate Oral 5 mg, daily. --20:36 Emma Slater R.N. Atenolol Oral 100 mg, daily. Atorvastatin Calcium Oral 10 mg, daily. Combivent Respimat Inhalation (Aerosol Solution 20-100 mcg/act). Magnesium Oxide Oral 200mg daily. [place] Oral (Tablet 7.5-325 mg) 1 tablet, tid as needed. [place] 3 fatty aacids daily . Omeprazole Oral 20 mg, daily. Ondansetron HCl Oral (Tablet 4 mg) 1 tablet, as needed. Ostomy Supplies. TiZANidine HCl Oral 4 mg, 2x a day. Vitamin c Oral (Tablet Chewable 500 mg) 1 tablet, daily. --20:36 Emma Slater R.N. Allergies CONTRAST DYE. --20:36 Emma Slater R.N. History Arrived by EMS. Historian: EMS. This started just prior to arrival. Treatment HEALTH COORDINATOR: None. (Flexeril and tylenol 1900). SOCIAL HX: Smoker- current status unknown. History of occasional drug use: marijuana. No alcohol use. No infectious disease exposure. ABUSE ASSESSMENT: No report of abuse. SELF HARM ASSESSMENT: A self harm assessment was performed. The patient answered "no" to the question "Do you have thoughts of harming or killing yourself?" and "Have you recently had thoughts about harming or killing others?". Bedside precautions. --20:38 Emma Slater R.N. ( Patient took shower, he then shifted to get up and tweaked his lower back, he had back surgery 28 years ago and still has intense pain). --21:26 Emma Slater R.N. PROBLEMS: Alcohol Withdrawal. Seizure. Atrial Fibrillation. Head Injury. Fall. Lifestyle / Substance Problems. Crohn's Disease. Bowel Obstruction. Kidney failure. Broken hip. Pancreatitis. Anxiety Reaction. Heartburn. Hypertension. Chronic Back Pain. Elevated Platelets from lab on the 14. --20:36 Emma Slater R.N. ADDITIONAL SURGERIES: Appendectomy. Back Surgery. Colostomy. Knee Surgery. Lump removal on back. Bassem in right femur. --20:36 Emma Slater R.N. Interventions ID band on patient. To treatment room. --20:38 Emma Slater R.N. PHYSICAL ASSESSMENT 20:40 11/27/16. To room via stretcher. Patient gowned. GENERAL / NEURO / PSYCH: Alert. Oriented X 4. Appears in pain and anxious. RESPIRATORY: Respirations not labored. Chest nontender. Breath sounds within normal limits. CVS: Normal heart rate and rhythm. Capillary refill less than 2 seconds. GI / : ( Colostomy RLQ). CVA tenderness. EXTREMITIES: Sensation intact in extremities. ROM of extremities within normal limits. BACK: Limited ROM of the back. Soft tissue tenderness. --20:40 Emma Slater R.N. NURSING PROGRESS NOTES 20:40 11/27/16. The plan of care for this patient has been created. Monitoring of patient in place. Patient gowned. Head of bed elevated. Reassurance given. Two patient identifiers checked. Call light placed in reach. Side rails up x 1. Bed placed in lowest position. Brakes of bed on. Patient ready for evaluation- chart flagged and ED physician notified. --20:40 Emma Slater R.N. 20:42 11/27/2016 Site #1 started via IV in the left hand with an 20g angiocath, with aseptic technique and good blood return; one attempt. Blood drawn: rainbow set. Saline lock flushed with 5 mL saline. --20:52 Loree Padilla R.N. 21:44 11/27/2016 Dilaudid (HYDROmorphone HCl PF) IVP 1 mg given over 2 minute(s) via site #1. Allergies verified, confirmed 5 rights and sedative warning given to the patient. IV patency established. IV site checked: no pain, redness, or swelling. IV flushed thoroughly pre- and post-medication administration. IVP given by RN. --21:44 Emma Slater R.N. 21:44 11/27/2016 Valium (Diazepam) IVP 1 mg given over 1 minute(s) via site #1. Allergies verified, confirmed 5 rights and sedative warning given to the patient. IV patency established. IV site checked: no pain, redness, or swelling. IV flushed thoroughly pre- and post-medication administration. IVP given by RN. --21:44 Emma Slater R.N. 21:45 11/27/16. ( Patient requesting water, offered ice, he accepted). --21:46 Emma Slater R.N. 21:45 11/27/16. BP: 142/98 (regular adult cuff) taken on the left arm, while sitting. HR: 97. RR: 20. O2 saturation: 92% on room air. Pain level now: 01/02. --21:46 Emma Slater R.N. ( Patient given ice water.). --22:34 Emma Slater R.N. 22:35 11/27/16. BP: 133/86 (regular adult cuff) taken on the left arm, while sitting. HR: 92. RR: 26. O2 saturation: 96% on room air. Pain level now: 01/02. --22:35 Emma Slater R.N. ( Patient attempted to get up for a ambulation trial, began shaking but will try and attempt prong cane). --22:35 Emma Slater R.N. ( Patient unable to ambulate at this time. too much pain). --22:36 Emma Slater R.N. 22:47 11/27/16. BP: 139/97 (regular adult cuff) taken on the left arm, while sitting. HR: 98. RR: 22. O2 saturation: 95% on room air. Pain level now: 01/02. --22:48 Emma Slater R.N. 22:48 11/27/16. --22:48 Emma Slater R.N. 22:49 11/27/16. ( Patient watching TV, having a hard time adjusting his weight in bed without having shooting pain up his back and throughout his hips). --22:49 Emma Slater R.N. 22:53 11/27/2016 Dilaudid (HYDROmorphone HCl PF) IVP 1 mg given over 2 minute(s) via site #1. Allergies verified, confirmed 5 rights and sedative warning given to the patient. IV patency established. IV site checked: no pain, redness, or swelling. IV flushed thoroughly pre- and post-medication administration. IVP given by RN. --22:54 Emma Slater R.N. 23:11 11/27/16. BP: 134/95 (regular adult cuff) taken on the left arm, while sitting. HR: 107. RR: 22. O2 saturation: 91% on room air. Pain level now: 01/02. --23:12 Emma Slater R.N. 23:12 11/27/16. ( Patient has not had any relief of pain, when he moves pain shoots to 03/04, just laying on bed 01/02.). --23:13 Emma Slater R.N. 23:36 11/27/2016 Percocet (Oxycodone-Acetaminophen) PO 5/325 mg Tablets 1 tab given. Allergies verified, confirmed 5 rights and sedative warning given to the patient. --23:36 Emma Slater R.N. 23:38 11/27/16. BP: 143/100 (regular adult cuff) taken on the left arm, while sitting. HR: 108. RR: 22. O2 saturation: 98% on room air. --23:38 Emma Slater R.N. 23:38 11/27/16. ( Patient will call daughter for ride). --23:38 Emma Slater R.N. DISPOSITION / DISCHARGE 00:38 11/28/16. BP: 155/88 (regular adult cuff) taken on the right arm, via an automated monitor, while lying. HR: 101. RR: 24. O2 saturation: 96%. Temp: 97.7 F. RN notified. Pain level now: 01/02. --00:41 Chelly Elizabeth late entry - 00:55 11/28/16. ( Patients daughter picked up patient to take home). --04:02 Emma Slater R.N. 04:02 11/28/16. Departure time: 00:55 Nov 28 2016. Condition at departure: unchanged. No learning barriers present. Discharge instructions provided and reviewed with the patient. Reviewed medication(s) side effects, precautions, dosing and course information. Prescription(s) given to the patient. Activity restrictions (light lifting) reviewed. Patient verbalized understanding. Written instructions provided in Maltese. The patient was discharged by the physician assistant track and field coach. He was discharged home and accompanied by family. He left the Emergency Department in a wheelchair and via private vehicle. Family member driving. --04:02 Emma Slater R.N. Locked/Released at 11/28/2016 4:03 by Emma Slater R.N.
--- NOTE | 2016-11-27 22:23 | ED ORDER SUMMARY ---
..... Patient: DEWEY VELOZ OrderSheet [facility] VisitID: [id number] [address] [place] [address] 56y, M Registration Date/Time: 11/27/2016 ORDER SHEET Weight: 70.3 kg (stated) Allergies: CONTRAST DYE GENERAL ORDERS: - (ambulatoin trial) (21:56 11/27/2016 EKoroleva P.A.-C) (Ack 22:36 HSoule) (22:37 HSoule) MEDICATION ORDERS: Percocet PO 5/325 mg (HIGH ALERT MEDICATION, NOW) (23:31 11/27/2016 EKoroleva P.A.-C) (Ack 23:35 JSanders R.N.) (23:36 JSanders R.N.) IV FLUIDS: IV Saline Lock (20:51 11/27/2016 LAbe R.N. verbal order read back to Andrew MORA) (20:52 LAbe R.N.) Dilaudid IV 1 mg (HIGH ALERT MEDICATION, NOW) (21:27 11/27/2016 EKoroleva P.A.-C) (Ack 21:35 JSanders R.N.) (21:44 JSanders R.N.) Valium IV 1 mg (HIGH ALERT MEDICATION, NOW) (21:27 11/27/2016 EKoroleva P.A.-C) (Ack 21:35 JSanders R.N.) (21:44 JSanders R.N.) Dilaudid IV 1 mg (HIGH ALERT MEDICATION, NOW) (22:40 11/27/2016 EKoroleva P.A.-C) (Ack 22:43 JSanders R.N.) (22:53 JSanders R.N.) ORDER SHEET NOTES: [Electronically signed by Emma Slater R.N. (04:03 11/28/2016)] [Electronically signed by Radha AcevesA.-C (14:12 11/28/2016)] [Electronically locked/signed by Emma Slater R.N. (04:03 11/28/2016)]
--- NOTE | 2016-11-27 22:23 | ED CLINICAL REPORT ---
Clinical Report - Physicians/Mid Levels [facility] [address] [place] [address] 11/27/2016 20:21 Patient: DEWEY VELOZ Time Seen: 2051Nov 27 2016. Arrived- By ambulance. Historian- patient and EMS personnel. HISTORY OF PRESENT ILLNESS Chief Complaint: BACK PAIN. It is described as being mild and in the area of the left lower lumbar spine, lower lumbar spine and right lower lumbar spine. The quality is noted to be "pain" and similar to prior episodes. It is still present. No bladder dysfunction or bowel dysfunction. Additional history - patient reports history of chronic back pain, has been off narcotic medications over the last 4-5 weeks, the low back pain while attempting to sit to stand position in his recliner. Patient reports pain now worsens with any movement or attempts such. Denies any direct trauma or fall. Denies radiation to the lower extremity. Patient has recently changed primary care providers, his previous provider left. Denies any difficulty urinating, urgency or frequency. Patient denies an injury and notes the possibility of an injury. Mechanism of injury- he was turning and fell from a standing position. REVIEW OF SYSTEMS No fever, chills, difficulty with urination, urinary frequency or hematuria. No cough, abdominal pain, vomiting or black stools. All systems otherwise negative, except as recorded above. PAST HISTORY Has not had a prior back injury. No sciatica. Problems: Alcohol Withdrawal. Seizure. Atrial Fibrillation. Laceration. Head Injury. Fall. Lifestyle / Substance Problems. Crohn's Disease. Bowel Obstruction. Kidney failure. Broken hip. Pancreatitis. Anxiety Reaction. Heartburn. Hypertension. Chronic Back Pain. Elevated Platelets from lab on the 14ths. Additional Surgeries: Appendectomy. Back Surgery. Colostomy. Knee Surgery. Lump removal on back. Bassem in right femur. Medications: Atenolol Oral 100 mg, daily. Atorvastatin Calcium Oral 10 mg, daily. Combivent Respimat Inhalation (Aerosol Solution 20-100 mcg/act). Magnesium Oxide Oral 200mg daily. [place] Oral (Tablet 7.5-325 mg) 1 tablet, tid as needed. [place] 3 fatty aacids daily . Omeprazole Oral 20 mg, daily. Ondansetron HCl Oral (Tablet 4 mg) 1 tablet, as needed. Ostomy Supplies. TiZANidine HCl Oral 4 mg, 2x a day. Vitamin c Oral (Tablet Chewable 500 mg) 1 tablet, daily. Amitriptyline HCl Oral 10 mg, at bedtime. AmLODIPine Besylate Oral 5 mg, daily. Allergies: CONTRAST DYE. SOCIAL HISTORY Smoker- current status unknown. History of drug use: marijuana. Not an IV drug user. No alcohol use. PHYSICAL EXAM Appearance: Alert. No acute distress. HEENT: Normal external inspection. CVS: Heart sounds normal. Pulses normal. Respiratory: No respiratory distress. Breath sounds normal. Abdomen: No visible injury. Abnormal bowel sounds. Back: Vertebral point tenderness over the upper, mid and lower lumbar spine. Soft tissue tenderness. Neuro: Oriented X 3. Mood/affect normal. No motor deficit. No sensory deficit. Straight leg raising: negative on the right and negative on the left. Reflex exam: right patellar 2+ and left patellar 2+. PROGRESS AND PROCEDURES Course of Care: Patient with limited back pain with sitting, pain worsens with acute movement exacerbated by surge. Here he develops muscle spasms. He is in no distress, With limited movement. Was able to use a walker in the emergency department. Patient uses a walker or a cane at home, has difficulty ambulating with steps. There are no risks for spinal epidural abscess or hematoma as patient is without any risk factors such as IVDA or evidence of active infection, no midline tenderness to percussion. Hence I do not feel emergent imaging with an MRI is indicated. However I did discuss with the patient that if these symptoms develop, or if the pain does not resolve an MRI may need to be done outpatient, or in the ED if symptoms worsen acutely or new onset of the above mentioned symptoms develop. 11/28/2016 00:38 BP: 155/88. HR: 101. RR: 24. O2 saturation: 96%. Temp: 97.7 F. Pain level now: 8/10. Patient is stable. Symptoms better. Patient/family counseled. Disposition: Discharged. CLINICAL IMPRESSION Chronic lumbar strain. INSTRUCTIONS Apply ice. Limit lifting. (follow up with your pcp/ new pcp or pain specialist). Warnings: SEDATIVE MEDICATION: You were given sedative medication during your visit. Do not drive or operate dangerous machinery. Prescription Medications: Hydrocodone/APAP 5mg / 325mg: take 1 orally every 8 hours as needed for pain. Dispense twelve (12). (Electronically signed by Radha Aceves P.A.-C 11/28/2016 14:12)
--- NOTE | 2016-11-27 22:23 | ED ORDER SUMMARY ---
..... Patient: DEWEY VELOZ OrderSheet [facility] VisitID: [id number] [address] [place] [address] 56y, M Registration Date/Time: 11/27/2016 ORDER SHEET Weight: 70.3 kg (stated) Allergies: CONTRAST DYE GENERAL ORDERS: - (ambulatoin trial) (21:56 11/27/2016 EKoroleva P.A.-C) (Ack 22:36 HSoule) (22:37 HSoule) MEDICATION ORDERS: Percocet PO 5/325 mg (HIGH ALERT MEDICATION, NOW) (23:31 11/27/2016 EKoroleva P.A.-C) (Ack 23:35 JSanders R.N.) (23:36 JSanders R.N.) IV FLUIDS: IV Saline Lock (20:51 11/27/2016 LAbe R.N. verbal order read back to Andrew MORA) (20:52 LAbe R.N.) Dilaudid IV 1 mg (HIGH ALERT MEDICATION, NOW) (21:27 11/27/2016 EKoroleva P.A.-C) (Ack 21:35 JSanders R.N.) (21:44 JSanders R.N.) Valium IV 1 mg (HIGH ALERT MEDICATION, NOW) (21:27 11/27/2016 EKoroleva P.A.-C) (Ack 21:35 JSanders R.N.) (21:44 JSanders R.N.) Dilaudid IV 1 mg (HIGH ALERT MEDICATION, NOW) (22:40 11/27/2016 EKoroleva P.A.-C) (Ack 22:43 JSanders R.N.) (22:53 JSanders R.N.) ORDER SHEET NOTES: [Electronically signed by Emma Slater R.N. (04:03 11/28/2016)] [Electronically signed by Radha AcevesA.-C (14:12 11/28/2016)] [Electronically locked/signed by Emma Slater R.N. (04:03 11/28/2016)]
--- NOTE | 2016-11-28 14:13 | ED MED RECONCILIATION SUMMARY ---
Patient: DEWEY VLEOZ Medication Reconciliation Report [facility] VisitID: [id number] [address] [place] [address] 56y, M Registration Date/Time: 11/27/2016 Weight: 70.3 kg Height/Length: 69 in. BMI: 22.9 ALLERGIES: CONTRAST DYE The patient's Home Medications are listed below: THE FOLLOWING MEDICATIONS NEED TO BE RECONCILED: Amitriptyline HCl Oral 10 mg, at bedtime AmLODIPine Besylate Oral 5 mg, daily Atenolol Oral 100 mg, daily Atorvastatin Calcium Oral 10 mg, daily Combivent Respimat Inhalation (20-100 mcg/act) Magnesium Oxide Oral 200mg daily [place] Oral (7.5-325 mg) 1 tablet, tid [place] 3 fatty aacids daily Omeprazole Oral 20 mg, daily Ondansetron HCl Oral (4 mg) 1 tablet Ostomy Supplies TiZANidine HCl Oral 4 mg, 2x a day Vitamin c Oral (500 mg) 1 tablet, daily The source(s) of the original Home Medication information: Not obtained. The following Medications were given to the patient in the Emergency Department: Dilaudid [IVP] IVP 1 mg, administered: 11/27/2016 9:44:00 PM Valium [IVP] IVP 1 mg, administered: 11/27/2016 9:44:00 PM Dilaudid [IVP] IVP 1 mg, administered: 11/27/2016 10:53:00 PM Percocet [PO] PO 1 tab, administered: 11/27/2016 11:36:00 PM The following Medications were prescribed to the patient: Hydrocodone/APAP 5mg / 325mg: take 1 orally every 8 hours as needed for pain. Dispense twelve (12). -- Radha Aceves P.A.-C
--- NOTE | 2016-11-28 14:13 | ED DISCHARGE INSTRUCTIONS ---
Patient: DEWEY VELOZ General Instructions [facility] VisitID: [id number] [place] [address] 56y, M Registration Date/Time: 11/27/2016 Chronic lumbar strain. INSTRUCTIONS Apply ice. Limit lifting. (follow up with your pcp/ new pcp or pain specialist). Warnings: SEDATIVE MEDICATION: You were given sedative medication during your visit. Do not drive or operate dangerous machinery. Prescription Medications: Hydrocodone/APAP 5mg / 325mg: take 1 orally every 8 hours as needed for pain. Dispense twelve (12). ADDITIONAL INFORMATION Back Pain [Acute Or Chronic] Back pain is usually caused by an injury to the muscles or ligaments of the spine. Sometimes the disks that separate each bone in the spine may bulge and cause pain by pressing on a nearby nerve. Back pain may also appear after a sudden twisting/bending force (such as in a car accident), after a simple awkward movement, or lifting something heavy with poor body positioning. In either case, muscle spasm is often present and adds to the pain. Acute back pain usually gets better in one to two weeks. Back pain related to disk disease, arthritis in the spinal joints or spinal stenosis (narrowing of the spinal canal) can become chronic and last for months or years. Unless you had a physical injury (for example, a car accident or fall) X-rays are usually not ordered for the initial evaluation of back pain. If pain continues and does not respond to medical treatment, x-rays and other tests may be performed at a later time. Home Care: You may need to stay in bed the first few days. But, as soon as possible, begin sitting or walking to avoid problems with prolonged bed rest (muscle weakness, worsening back stiffness and pain, blood clots in the legs). When in bed, try to find a position of comfort. A firm mattress is best. Try lying flat on your back with pillows under your knees. You can also try lying on your side with your knees bent up towards your chest and a pillow between your knees. Avoid prolonged sitting. This puts more stress on the lower back than standing or walking. During the first two days after injury, apply an ICE PACK to the painful area for 20 minutes every 2-4 hours. This will reduce swelling and pain. HEAT (hot shower, hot bath or heating pad) works well for muscle spasm. You can start with ice, then switch to heat after two days. Some patients feel best alternating ice and heat treatments. Use the one method that feels the best to you. You may use acetaminophen (Tylenol) or ibuprofen (Motrin, Advil) to control pain, unless another pain medicine was prescribed. [NOTE: If you have chronic liver or kidney disease or ever had a stomach ulcer or GI bleeding, talk with your doctor before using these medicines.] Be aware of safe lifting methods and do not lift anything over 15 pounds until all the pain is gone. Follow Up with your doctor or this facility if your symptoms do not start to improve after one week. Physical therapy may be needed. [NOTE: If X-rays were taken, they will be reviewed by a radiologist. You will be notified of any new findings that may affect your care.] Get Prompt Medical Attention if any of the following occur: Pain becomes worse or spreads to your legs Weakness or numbness in one or both legs Loss of bowel or bladder control Numbness in the groin or genital area Hydrocodone Bitartrate, Acetaminophen Oral tablet What is this medicine? ACETAMINOPHEN; HYDROCODONE (a set a DARRELL maxi fen; norbert droe KOE done) is a pain reliever. It is used to treat mild to moderate pain. How should I use this medicine? Take this medicine by mouth. Swallow it with a full glass of water. Follow the directions on the prescription label. If the medicine upsets your stomach, take the medicine with food or milk. Do not take more than you are told to take. Talk to your cyber defense incident responder regarding the use of this medicine in children. This medicine is not approved for use in children. What side effects may I notice from receiving this medicine? Side effects that you should report to your doctor or health client care specialist as soon as possible: allergic reactions like skin rash, itching or hives, swelling of the face, lips, or tongue breathing problems confusion feeling faint or lightheaded, falls stomach pain yellowing of the eyes or skin Side effects that usually do not require medical attention (report to your doctor or health client care specialist if they continue or are bothersome): nausea, vomiting stomach upset What may interact with this medicine? alcohol antihistamines isoniazid medicines for depression, anxiety, or psychotic disturbances medicines for sleep muscle relaxants naltrexone narcotic medicines (opiates) for pain phenobarbital ritonavir tramadol What if I miss a dose? If you miss a dose, take it as soon as you can. If it is almost time for your next dose, take only that dose. Do not take double or extra doses. Where should I keep my medicine? Keep out of the reach of children. This medicine can be abused. Keep your medicine in a safe place to protect it from theft. Do not share this medicine with anyone. Selling or giving away this medicine is dangerous and against the law. Store at room temperature between 15 and 30 degrees C (59 and 86 degrees F). Protect from light. Keep container tightly closed. Throw away any unused medicine after the expiration date. Discard unused medicine and used packaging carefully. Pets and children can be harmed if they find used or lost packages. What should I tell my health care provider before I take this medicine? They need to know if you have any of these conditions: brain tumor Crohn's disease, inflammatory bowel disease, or ulcerative colitis drink more than 3 alcohol-containing drinks per day drug abuse or addiction head injury heart or circulation problems kidney disease or problems going to the bathroom liver disease lung disease, asthma, or breathing problems an unusual or allergic reaction to acetaminophen, hydrocodone, other opioid analgesics, other medicines, foods, dyes, or preservatives or trying to get breast-feeding What should I watch for while using this medicine? Tell your doctor or health client care specialist if your pain does not go away, if it gets worse, or if you have new or a different type of pain. You may develop tolerance to the medicine. Tolerance means that you will need a higher dose of the medicine for pain relief. Tolerance is normal and is expected if you take the medicine for a long time. Do not suddenly stop taking your medicine because you may develop a severe reaction. Your body becomes used to the medicine. This does NOT mean you are addicted. Addiction is a behavior related to getting and using a drug for a non-medical reason. If you have pain, you have a medical reason to take pain medicine. Your doctor will tell you how much medicine to take. If your doctor wants you to stop the medicine, the dose will be slowly lowered over time to avoid any side effects. You may get drowsy or dizzy when you first start taking the medicine or change doses. Do not drive, use machinery, or do anything that may be dangerous until you know how the medicine affects you. Stand or sit up slowly. There are different types of narcotic medicines (opiates) for pain. If you take more than one type at the same time, you may have more side effects. Give your health care provider a list of all medicines you use. Your doctor will tell you how much medicine to take. Do not take more medicine than directed. Call emergency for help if you have problems breathing. The medicine will cause constipation. Try to have a bowel movement at least every 2 to 3 days. If you do not have a bowel movement for 3 days, call your doctor or health client care specialist. Too much acetaminophen can be very dangerous. Do not take Tylenol (acetaminophen) or medicines that contain acetaminophen with this medicine. Many non-prescription medicines contain acetaminophen. Always read the labels carefully. You have been given the following additional information: Back Pain (Acute Or Chronic) Hydrocodone Bitartrate, Acetaminophen Oral tablet Limit lifting. (Electronically signed by Radha Aceves P.A.-C 11/28/2016 14:12)
--- NOTE | 2016-11-28 14:13 | ED MED RECONCILIATION SUMMARY ---
Patient: DEWEY VELOZ Medication Reconciliation Report [facility] VisitID: [id number] [address] [place] [address] 56y, M Registration Date/Time: 11/27/2016 Weight: 70.3 kg Height/Length: 69 in. BMI: 22.9 ALLERGIES: CONTRAST DYE The patient's Home Medications are listed below: THE FOLLOWING MEDICATIONS NEED TO BE RECONCILED: Amitriptyline HCl Oral 10 mg, at bedtime AmLODIPine Besylate Oral 5 mg, daily Atenolol Oral 100 mg, daily Atorvastatin Calcium Oral 10 mg, daily Combivent Respimat Inhalation (20-100 mcg/act) Magnesium Oxide Oral 200mg daily [place] Oral (7.5-325 mg) 1 tablet, tid [place] 3 fatty aacids daily Omeprazole Oral 20 mg, daily Ondansetron HCl Oral (4 mg) 1 tablet Ostomy Supplies TiZANidine HCl Oral 4 mg, 2x a day Vitamin c Oral (500 mg) 1 tablet, daily The source(s) of the original Home Medication information: Not obtained. The following Medications were given to the patient in the Emergency Department: Dilaudid [IVP] IVP 1 mg, administered: 11/27/2016 9:44:00 PM Valium [IVP] IVP 1 mg, administered: 11/27/2016 9:44:00 PM Dilaudid [IVP] IVP 1 mg, administered: 11/27/2016 10:53:00 PM Percocet [PO] PO 1 tab, administered: 11/27/2016 11:36:00 PM The following Medications were prescribed to the patient: Hydrocodone/APAP 5mg / 325mg: take 1 orally every 8 hours as needed for pain. Dispense twelve (12). -- Radha Aceves P.A.-C
--- NOTE | 2016-11-28 14:13 | ED MAR SUMMARY ---
..... Medication Administration Record [facility] [address] [place] [address] Patient: DEWEY VELOZ Visit ID: [id number] 56y, M Weight: 70.3 kg Height/Length: 69 in BMI: 22.9 ALLERGIES: CONTRAST DYE Given :44 11/27/2016 Emma Slater R.N. Medication Administered: DILAUDID [IVP] (HYDROMORPHONE HCL PF), Dose: 1 mg IVP over 2 minute(s), Site: #1 left hand. Medication Ordered: Dilaudid IV 1 mg (HIGH ALERT MEDICATION, NOW). Given :44 11/27/2016 Emma Slater R.N. Medication Administered: VALIUM [IVP] (DIAZEPAM), Dose: 1 mg IVP over 1 minute(s), Site: #1 left hand. Medication Ordered: Valium IV 1 mg (HIGH ALERT MEDICATION, NOW). Given 22:53 11/27/2016 Emma Slater R.N. Medication Administered: DILAUDID [IVP] (HYDROMORPHONE HCL PF), Dose: 1 mg IVP over 2 minute(s), Site: #1 left hand. Medication Ordered: Dilaudid IV 1 mg (HIGH ALERT MEDICATION, NOW). Given 23:36 11/27/2016 Emma Slater R.N. Medication Administered: PERCOCET [PO] (OXYCODONE-ACETAMINOPHEN), Dose: 1 tab 5/325 mg Tablets PO. Medication Ordered: Percocet PO 5/325 mg (HIGH ALERT MEDICATION, NOW).
--- NOTE | 2016-11-28 14:13 | ED MAR SUMMARY ---
..... Medication Administration Record [facility] [address] [place] [address] Patient: DEWEY VELOZ Visit ID: [id number] 56y, M Weight: 70.3 kg Height/Length: 69 in BMI: 22.9 ALLERGIES: CONTRAST DYE Given :44 11/27/2016 Emma Slater R.N. Medication Administered: DILAUDID [IVP] (HYDROMORPHONE HCL PF), Dose: 1 mg IVP over 2 minute(s), Site: #1 left hand. Medication Ordered: Dilaudid IV 1 mg (HIGH ALERT MEDICATION, NOW). Given :44 11/27/2016 Emma Slater R.N. Medication Administered: VALIUM [IVP] (DIAZEPAM), Dose: 1 mg IVP over 1 minute(s), Site: #1 left hand. Medication Ordered: Valium IV 1 mg (HIGH ALERT MEDICATION, NOW). Given 22:53 11/27/2016 Emma Slater R.N. Medication Administered: DILAUDID [IVP] (HYDROMORPHONE HCL PF), Dose: 1 mg IVP over 2 minute(s), Site: #1 left hand. Medication Ordered: Dilaudid IV 1 mg (HIGH ALERT MEDICATION, NOW). Given 23:36 11/27/2016 Emma Slater R.N. Medication Administered: PERCOCET [PO] (OXYCODONE-ACETAMINOPHEN), Dose: 1 tab 5/325 mg Tablets PO. Medication Ordered: Percocet PO 5/325 mg (HIGH ALERT MEDICATION, NOW).
== END 2016-11-28 00:50 | disposition home or self-care (01) ==
LOC: ED SRH 20:21
DX: G89.29 Other chronic pain (principal); S39.012A Strain of muscle, fascia and tendon of lower back, initial encounter; W17.89XA Other fall from one level to another, initial encounter; X50.3XXA Overexertion from repetitive movements, initial encounter; Y92.009 Unspecified place in unspecified non-institutional (private) residence as the place of occurrence of the external cause; I48.91 Unspecified atrial fibrillation; I10 Essential (primary) hypertension; Z79.899 Other long term (current) drug therapy; Z91.041 Radiographic dye allergy status